=== PATIENT | female | born 1940 | race Caucasian/White ===

== ENCOUNTER → 2016-12-04 | Outpatient (CLI) | payer MEDICARE ==
[~2016-12-04] VITALS: Ht 149.9 cm; Wt 84.4 kg
[~2016-12-04] MED LIST: ALBU17IN INH; ALBUTEROL SULFATE 2.5 MG/0.5 ML INH NEB SOLN As Ordered ONE; ALLE180T33 PO; AMBI10TA PO; AMIT25TA PO; ASPI81TA85 PO; BENZ100C5 PO; BREO1INH INH; ESTR1TAB PO; LEVO-84 PO; LIDOCAINE 2% INJ 100 MG/5 ML SDV (FOR ANES.) As Ordered ONE; MELA10TA PO; METF500T PO; METO-209 PO; MULT1TAB18 PO; NEXI20CA PO; NORC5TAB PO; NS 1,000 ML IV SCH; PRAV40TA2 PO; PROPOFOL 200 MG/20 ML VIAL As Ordered ONE; TRAM50TA2 PO; VALS160T PO
--- NOTE | 2016-12-04 12:31 | ROOR ---
Patient Name: Ronit Mckeon Procedure Date: 12/04/2016 12:19 PM Date of : 1940 Age: 76 Room: [facility] Gender: Female Note Status: Finalized Procedure: Upper GI endoscopy Indications: Heartburn Providers: Avi SOLIS MD Referring MD: DANIA ALCARAZ NP Requesting Provider: Medicines: Monitored Anesthesia Care Complications: No immediate complications. Procedure: Pre-Anesthesia Assessment: - The heart rate, respiratory rate, oxygen saturations, blood pressure, adequacy of pulmonary ventilation, and response to care were monitored throughout the procedure. The Endoscope was introduced through the mouth, and advanced to the second part of duodenum. The upper GI endoscopy was accomplished without difficulty. The patient tolerated the procedure well. Findings: A large hiatal hernia was present. The esophagus was normal. The stomach was normal. The examined duodenum was normal. Impression: - Large hiatal hernia. - Normal esophagus. - Normal stomach. - Normal examined duodenum. - No specimens collected. Recommendation: - Continue present medications. - Follow an antireflux regimen. Avi Solis MD Avi SOLIS MD 12/04/2016 12:31:48 PM This report has been signed electronically. Number of Addenda: 0 Note Initiated On: 12/04/2016 12:19 PM Estimated Blood Loss: Estimated blood loss: none.
--- NOTE | 2016-12-04 12:49 | ROOR ---
Patient Name: Ronit Mckeon Procedure Date: 12/04/2016 12:20 PM Date of : 1940 Age: 76 Room: [facility] Gender: Female Note Status: Finalized Procedure: Colonoscopy Indications: High risk colon cancer surveillance: Personal history of colonic polyps Providers: Avi SOLIS MD Referring MD: DANIA ALCARAZ NP Requesting Provider: Medicines: Monitored Anesthesia Care Complications: No immediate complications. Procedure: Pre-Anesthesia Assessment: - The heart rate, respiratory rate, oxygen saturations, blood pressure, adequacy of pulmonary ventilation, and response to care were monitored throughout the procedure. The Colonoscope was introduced through the anus and advanced to the cecum, identified by appendiceal orifice and ileocecal valve. The colonoscopy was performed without difficulty. The patient tolerated the procedure well. The quality of the bowel preparation was good. Findings: The perianal exam findings include skin tags. Multiple small-mouthed diverticula were found in the sigmoid colon. Two sessile polyps were found in the sigmoid colon and ascending colon. The polyps were 4 to 5 mm in size. These polyps were removed with a cold snare. Resection and retrieval were complete. Internal hemorrhoids were found during retroflexion. The hemorrhoids were medium-sized. Impression: - Perianal skin tags found on perianal exam. - Diverticulosis in the sigmoid colon. - Two 4 to 5 mm polyps in the sigmoid colon and in the ascending colon, removed with a cold snare. Resected and retrieved. - Internal hemorrhoids. Recommendation: - Repeat colonoscopy in 3 years for adenoma surveillance. Avi Solis MD Avi SOLIS MD 12/04/2016 12:48:37 PM This report has been signed electronically. Number of Addenda: 0 Note Initiated On: 12/04/2016 12:20 PM Estimated Blood Loss: Estimated blood loss: none.
[2016-12-04 13:20] VITALS: BP 162/73
== END | disposition home or self-care (01) ==
LOC: M OPP 11:28
PROVIDERS: ATTEND Internal Medicine Gastroenterology
DX: Z12.11 Encounter for screening for malignant neoplasm of colon (principal); D12.2 Benign neoplasm of ascending colon; D12.5 Benign neoplasm of sigmoid colon; Z86.010 Personal history of colon polyps; K57.30 Diverticulosis of large intestine without perforation or abscess without bleeding; K64.4 Residual hemorrhoidal skin tags; R12 Heartburn; I10 Essential (primary) hypertension; E11.9 Type 2 diabetes mellitus without complications; Z80.0 Family history of malignant neoplasm of digestive organs; E78.5 Hyperlipidemia, unspecified; E03.9 Hypothyroidism, unspecified; K58.9 Irritable bowel syndrome, unspecified; M19.90 Unspecified osteoarthritis, unspecified site; G62.9 Polyneuropathy, unspecified; J45.909 Unspecified asthma, uncomplicated; Z79.82 Long term (current) use of aspirin; Z79.84 Long term (current) use of oral hypoglycemic drugs; Z79.51 Long term (current) use of inhaled steroids; Z79.899 Other long term (current) drug therapy

== ENCOUNTER 2017-03-06 09:21 | Emergency (ER) | payer MEDICARE ==
[~2017-03-06] VITALS: Ht 149.9 cm; Wt 85.3 kg
[~2017-03-06 09:21] MED LIST changes: -ALBUTEROL SULFATE 2.5 MG/0.5 ML INH NEB SOLN As Ordered ONE; -LIDOCAINE 2% INJ 100 MG/5 ML SDV (FOR ANES.) As Ordered ONE; +NORC1TAB4 PO; -NORC5TAB PO; -NS 1,000 ML IV SCH; -PROPOFOL 200 MG/20 ML VIAL As Ordered ONE
[2017-03-06] MEDS ORDERED: LEVO75TA4 PO (09:40)
[2017-03-06] MEDS ORDERED: ESOM1CAP5 PO (09:40)
[2017-03-06] MEDS ORDERED: MORPHINE 4 MG/ML 1ML SYRINGE IM ONE (10:30)
[2017-03-06] MEDS ORDERED: LIDOCAINE 2% MDV 20 ML VIAL SC ONE (11:15)
[2017-03-06] MEDS ORDERED: LIDOCAINE 2% MDV 20 ML VIAL As Ordered ONE (11:17)
--- NOTE | 2017-03-06 12:04 | REP ---
Clinical: Trauma. Technique: AP, lateral, bilateral oblique views to the right fourth and fifth digits. Findings: There is an acute posterior dislocation at the fifth proximal interphalangeal joint and small associated fracture cannot be excluded. The fourth digit is intact. Diffuse underlying osteoarthritic changes are noted. Impression: Acute posterior dislocation at the fifth proximal interphalangeal joint. Small associated fracture cannot be excluded. Signed by Evert Llanos MD 03/06/2017 11:07 A
[2017-03-06] MEDS ORDERED: NEOSPORIN OINT 0.9 GM PKT (FLOOR STOCK) As Ordered ONE (12:38)
[2017-03-06] MEDS ORDERED: ALBUTEROL 90 MCG/ACT 8GM HFA INHALER INH ONE (13:00)
[2017-03-06 13:29] VITALS: BP 134/87
--- NOTE | 2017-03-07 07:54 | REP ---
Clinical: Status post reduction. Technique: AP, lateral, bilateral oblique views of the right fifth digit. Findings: Lateral view demonstrates improved alignment with mild residual posterior subluxation at the proximal interphalangeal joint and correlation is recommended. While no definite fracture is appreciated, small fracture fragment cannot be excluded. Underlying osteoarthritic degenerative changes again noted. Impression: Improved alignment with continued mild posterior subluxation based on lateral radiograph. Signed by Evert Llanos MD 03/06/2017 12:56 P
== END 2017-03-06 13:31 | disposition home or self-care (01) ==
LOC: M ED 10:28
DX: S63.286A Dislocation of proximal interphalangeal joint of right little finger, initial encounter (principal); S61.214A Laceration without foreign body of right ring finger without damage to nail, initial encounter; S61.216A Laceration without foreign body of right little finger without damage to nail, initial encounter; W18.09XA Striking against other object with subsequent fall, initial encounter; Y92.019 Unspecified place in single-family (private) house as the place of occurrence of the external cause; Y93.01 Activity, walking, marching and hiking; Y99.8 Other external cause status

== ENCOUNTER → 2021-12-01 | Outpatient (CLI) | payer OTHER ==
[~2021-12-01] MED LIST changes: -AMIT25TA PO; +AMIT25TA17 PO; -ASPI81TA85 PO; +ASPI81TA86 PO; +BENZ-18 PO; -BENZ100C5 PO; +ESOM1CAP5 PO; +LEVO75TA4 PO; -METF500T PO; +METF500T13 PO; -METO-209 PO; +METO1TAB33 PO; -NORC1TAB4 PO; +NORC1TAB7 PO; -VALS160T PO; +VALS160T2 PO
== END ==
LOC: M PAIN 13:00
PROVIDERS: ATTEND Anesthesiology
DX: M48.061 Spinal stenosis, lumbar region without neurogenic claudication (principal); M53.3 Sacrococcygeal disorders, not elsewhere classified; E11.9 Type 2 diabetes mellitus without complications; E03.9 Hypothyroidism, unspecified; J44.9 Chronic obstructive pulmonary disease, unspecified; Z96.651 Presence of right artificial knee joint; E66.01 Morbid (severe) obesity due to excess calories; Z68.45 Body mass index [BMI] 70 or greater, adult; Z79.82 Long term (current) use of aspirin; Z79.899 Other long term (current) drug therapy

== ENCOUNTER → 2022-06-14 | Outpatient (CLI) | payer MEDICARE ==
[~2022-06-14] MED LIST changes: +ISOVUE-300 61% 50ML VIAL As Ordered ONE; +LIDOCAINE 1% MDV 20ML VIAL As Ordered ONE; +TRIAMCINOLONE ACETONIDE SUSP 40 MG/ML VIAL (J3301) As Ordered ONE
== END ==
LOC: M RADPRO 14:07
PROVIDERS: ATTEND Physician Assistant
DX: M16.0 Bilateral primary osteoarthritis of hip (principal)
CPT/HCPCS: 20610; 76000; J3301; Q9967

== ENCOUNTER 2022-09-25 11:16 | Inpatient (IN) | payer MEDICARE ==
[~2022-09-25] VITALS: Ht 147.3 cm; Wt 87.8 kg
[~2022-09-25 11:16] MED LIST changes: -ISOVUE-300 61% 50ML VIAL As Ordered ONE; -LIDOCAINE 1% MDV 20ML VIAL As Ordered ONE; +OMEPRAZOLE 20MG CAP PO SCH; +OSELTAMIVIR PHOSPHATE 30MG CAPSULE PO SCH; -TRIAMCINOLONE ACETONIDE SUSP 40 MG/ML VIAL (J3301) As Ordered ONE
[2022-09-25] MEDS ORDERED: NS 500 ML IV ONE ×3 (11:30→16:50)
[2022-09-25] MEDS ORDERED: ISOVUE-370 76% 100ML VIAL As Ordered ONE (11:43)
[2022-09-25 12:07] LABS: BASO # 0.1 10^3/uL (0.0-0.2); BASO % 0.6 % (0.0-1.0); EOS # 0.1 10^3/uL (0.0-0.5); EOS % 0.5 % (0.0-3.0); HEMATOCRIT 37.2 % (36.0-47.0); HEMOGLOBIN 12.3 g/dl (12.0-15.5); LYMPH # 0.6 10^3/uL (1.5-5.0); LYMPH % 3.7 % (24.0-44.0); MEAN CORPUSCULAR HEMOGLOBIN 32.7 pg (27.0-33.0); MEAN CORPUSCULAR HGB CONC 33.1 g/dl (32.0-36.5); MEAN CORPUSCULAR VOLUME 98.9 fl (80.0-96.0); MONO # 0.9 10^3/uL (0.0-0.8); MONO % 5.6 % (2.0-8.0); NEUTROPHILS # 14.5 10^3/uL (1.5-8.5); NEUTROPHILS % 88.6 % (36.0-66.0); PLATELET COUNT, AUTOMATED 255 10^3/uL (150-450); RED BLOOD COUNT 3.76 10^6/uL (4.00-5.40); WHITE BLOOD COUNT 16.4 10^3/uL (4.0-10.0)
[2022-09-25] MEDS ORDERED: MORPHINE 2 MG/ML 1ML VIAL IV PRN (12:30)
[2022-09-25 12:31] LABS: ETHYL ALCOHOL (ETHANOL) 0.003 % (0.000-0.010)
[2022-09-25 12:33] LABS: ACETAMINOPHEN LEVEL < 2.0 UG/ML (10.0-20.0); ALBUMIN 2.3 G/DL (3.2-5.2); ALKALINE PHOSPHATASE 102 U/L (46-116); ALT/SGPT 131 U/L (7.0-40); AST/SGOT 330 U/L (<34); BILIRUBIN,DIRECT 0.2 MG/DL (<0.4); BILIRUBIN,TOTAL 0.4 MG/DL (0.3-1.2); BLOOD UREA NITROGEN 140 MG/DL (9-23); CALCIUM LEVEL 8.1 MG/DL (8.3-10.6); CARBON DIOXIDE LEVEL 23 MMOL/L (20-31); CHLORIDE LEVEL 96 MMOL/L (98-107); CK-MB VALUE MASS 49.9 NG/ML (<3.6); CREATININE FOR GFR 4.74 MG/DL (0.55-1.30); GLOMERULAR FILTRATION RATE 9.4 (>32); GLUCOSE, FASTING 354 MG/DL (74-106); POTASSIUM SERUM 3.5 MMOL/L (3.5-5.1); SALICYLATE LEVEL < 3.0 MG/DL (<30); SODIUM LEVEL 139 MMOL/L (136-145); TOTAL PROTEIN 6.4 G/DL (5.7-8.2)
[2022-09-25 12:35] LABS: THYROID STIMULATING HORMONE 1.816 uIU/ML (0.55-4.78)
[2022-09-25 12:55] LABS: RSV AMPLIFICATION NEGATIVE (NEGATIVE)
[2022-09-25 12:57] LABS: CPK CREATINE PHOSPHOKINASE 14606 U/L (34-145); MB/CK RELATIVE INDEX 0.34 (< OR =4)
[2022-09-25 13:23] LABS: CK-MB VALUE MASS 51.7 NG/ML (<3.6)
[2022-09-25 13:35] LABS: AMPHETAMINES LEVEL URINE NEGATIVE (NEGATIVE); BARBITURATES URINE NEGATIVE (NEGATIVE); BENZODIAZEPINES URINE NEGATIVE (NEGATIVE); CANNABINOIDS URINE NEGATIVE (NEGATIVE); COCAINE METABOLITE URINE NEGATIVE (NEGATIVE); METHADONE URINE NEGATIVE (NEGATIVE); OPIATES URINE NEGATIVE (NEGATIVE); PHENCYCLIDINE URINE NEGATIVE (NEGATIVE)
[2022-09-25] MEDS ORDERED: BOOSTRIX/ADACEL VACCINE (DIPHTH/PERTUSS/ACELL/TETANUS) 0.5ML SYR IM.IMMUN ONE (13:35)
[2022-09-25 13:43] LABS: MB/CK RELATIVE INDEX 0.36 (< OR =4)
[2022-09-25 14:19] VITALS: BP 104/64
[2022-09-25] MEDS ORDERED: NS 1,000 ML IV ONE (14:50)
[2022-09-25] MEDS ORDERED: GLUCOSE 4GM CHEW TABLET PO PRN (15:30)
[2022-09-25] MEDS ORDERED: GLUCAGON INJ 1MG VIAL SC PRN (15:30)
[2022-09-25] MEDS ORDERED: DEXTROSE 50% 50ML SYRINGE IV PRN (15:30)
[2022-09-25] MEDS ORDERED: GABA800T4 PO (16:06)
[2022-09-25] MEDS ORDERED: SYMB16INH INH (16:06)
[2022-09-25] MEDS ORDERED: LOSA100T45 PO (16:06)
[2022-09-25] MEDS ORDERED: QC F0.52 PO (16:06)
[2022-09-25] MEDS ORDERED: HYDR50TAB PO (16:06)
[2022-09-25] MEDS ORDERED: OMEP-173 PO (16:06)
[2022-09-25] MEDS ORDERED: FLON1SPR NARES (16:06)
[2022-09-25] MEDS ORDERED: MONT10TA97 PO (16:06)
[2022-09-25] MEDS ORDERED: CETI10TA4 PO (16:06)
[2022-09-25] MEDS ORDERED: LEVO88TA24 PO (16:06)
[2022-09-25] MEDS ORDERED: PRED5TA PO (16:06)
[2022-09-25] MEDS ORDERED: RA N1TAB PO (16:06)
[2022-09-25] MEDS ORDERED: VITMTA PO (16:06)
[2022-09-25] MEDS ORDERED: ASPI-161 PO (16:06)
[2022-09-25] MEDS ORDERED: ALBU8.5H INH (16:06)
[2022-09-25] MEDS ORDERED: SEMA1PEN2 PO (16:06)
[2022-09-25] MEDS ORDERED: HYLAND LEG CRAMPS PO (16:06)
[2022-09-25] MEDS ORDERED: OXYB-54 PO (16:06)
[2022-09-25] MEDS ORDERED: COQ1100C5 PO (16:06)
[2022-09-25] MEDS ORDERED: DOCU100C17 PO (16:06)
[2022-09-25] MEDS ORDERED: CHOL50003 PO (16:06)
[2022-09-25] MEDS ORDERED: IBUP1TAB6 PO (16:06)
[2022-09-25] MEDS ORDERED: HOME MED LIST COMPLETE! XX SCH (16:10)
[2022-09-25] MEDS: NS 1,000 ML IV SCH ×2 (16:37→20:58)
[2022-09-25] MEDS ORDERED: METOPROLOL TART 25 MG TABLET PO ONE (16:45)
[2022-09-25 16:54] LABS: MAGNESIUM LEVEL 2.2 MG/DL (1.8-2.4)
[2022-09-25 16:55] LABS: CALCIUM LEVEL 7.1 MG/DL (8.3-10.6); CREATININE FOR GFR 4.2 MG/DL (0.55-1.30); GLOMERULAR FILTRATION RATE 10.8 (>32); PHOSPHORUS LEVEL 5.7 MG/DL (2.4-5.1); POTASSIUM SERUM 3.6 MMOL/L (3.5-5.1)
[2022-09-25] MEDS: OSELTAMIVIR PHOSPHATE 30MG CAPSULE PO SCH (17:09)
[2022-09-25] MEDS: cefTRIAXone SOD 1 GM in D5W MINI-BAG PLUS 50 ML IV SCH (17:11)
[2022-09-25] MEDS: INSULIN LISPRO (NovoLOG) PER UNIT SC SCH ×2 (17:46→20:56)
[2022-09-25] MEDS ORDERED: DOCUSATE SODIUM 100MG CAPSULE PO PRN (19:25)
[2022-09-25] MEDS ORDERED: ALBUTEROL 90 MCG/ACT 8GM HFA INHALER INH PRN (19:25)
[2022-09-25] MEDS ORDERED: FLUTICASONE PROP 0.05% NASAL SPRAY 16 GM (FLONASE) NARES PRN (19:25)
[2022-09-25] MEDS: oxyBUTYnin *DITROPAN XL* 5 MG TABCR PO SCH (20:55)
[2022-09-25] MEDS: OMEPRAZOLE 20MG CAP PO SCH (20:55)
[2022-09-25] MEDS: HEPARIN SOD (PORCINE) 5000UNITS/ML 1ML VIAL/SYRINGE SQ SCH (20:56)
[2022-09-25] MEDS: predniSONE 5 MG TAB PO SCH (20:57)
[2022-09-25 20:58] LABS: BILIRUBIN,DIRECT 0.1 MG/DL (<0.4)
[2022-09-25 21:06] LABS: ALBUMIN 1.9 G/DL (3.2-5.2); BILIRUBIN,TOTAL 0.3 MG/DL (0.3-1.2); TOTAL PROTEIN 5.3 G/DL (5.7-8.2)
[2022-09-25] MEDS: SYMBICORT 160/4.5MCG INHALER 6GM INH SCH (21:18)
[2022-09-25] MEDS: METOPROLOL TART 25 MG TABLET PO SCH (23:59)
[2022-09-26] VITALS (7 sets, daily range): BP systolic 104–122; BP diastolic 53–66
[2022-09-26] MEDS ORDERED: LIDOCAINE 5% (LIDODERM) PATCH TD ONE (04:55)
[2022-09-26] MEDS: HEPARIN SOD (PORCINE) 5000UNITS/ML 1ML VIAL/SYRINGE SQ SCH ×3 (05:23→20:20)
[2022-09-26] MEDS: METOPROLOL TART 25 MG TABLET PO SCH ×2 (05:24→12:00)
[2022-09-26] MEDS: LEVOTHYROXINE 88MCG TABLET (0.088 MG) PO SCH (05:24)
[2022-09-26 06:43] LABS: HEMATOCRIT 31.1 % (36.0-47.0); MEAN CORPUSCULAR HEMOGLOBIN 32.4 pg (27.0-33.0); MEAN CORPUSCULAR HGB CONC 32.2 g/dl (32.0-36.5); MEAN CORPUSCULAR VOLUME 100.6 fl (80.0-96.0); PLATELET COUNT, AUTOMATED 184 10^3/uL (150-450); RED BLOOD COUNT 3.09 10^6/uL (4.00-5.40); WHITE BLOOD COUNT 11.2 10^3/uL (4.0-10.0)
[2022-09-26 07:09] LABS: MAGNESIUM LEVEL 1.9 MG/DL (1.8-2.4)
[2022-09-26 07:10] LABS: BILIRUBIN,DIRECT 0.1 MG/DL (<0.4)
[2022-09-26] MEDS: SYMBICORT 160/4.5MCG INHALER 6GM INH SCH ×2 (07:16→20:29)
[2022-09-26 07:40] LABS: ANISOCYTOSIS 1+; LYMPHOCYTES 9 % (16-44); MONOCYTES 2 % (0-5); NEUTROPHILS 83 % (28-66)
[2022-09-26 07:41] LABS: ALBUMIN 1.5 G/DL (3.2-5.2); BILIRUBIN,TOTAL 0.3 MG/DL (0.3-1.2); CALCIUM LEVEL 6.5 MG/DL (8.3-10.6); CREATININE FOR GFR 3.17 MG/DL (0.55-1.30); GLOMERULAR FILTRATION RATE 14.9 (>32); MICROCYTOSIS 1+; PHOSPHORUS LEVEL 4.8 MG/DL (2.4-5.1); PLATELET ESTIMATE NORMAL (NORMAL); POTASSIUM SERUM 3.6 MMOL/L (3.5-5.1); TOTAL PROTEIN 4.7 G/DL (5.7-8.2)
[2022-09-26] MEDS ORDERED: oxyCODONE 5MG TAB PO ONE (07:45)
[2022-09-26] MEDS: INSULIN LISPRO (NovoLOG) PER UNIT SC SCH ×4 (08:17→20:16)
[2022-09-26] MEDS: ASPIRIN 81MG ENTERIC TABLET PO SCH (08:17)
[2022-09-26] MEDS: MONTELUKAST 10 MG TAB PO SCH (08:18)
[2022-09-26] MEDS: OMEPRAZOLE 20MG CAP PO SCH ×2 (08:18→20:20)
[2022-09-26] MEDS: predniSONE 5 MG TAB PO SCH ×2 (08:18→20:20)
[2022-09-26] MEDS: CETIRIZINE (ZyrTEC) 10 MG TAB PO SCH (08:18)
[2022-09-26] MEDS: oxyBUTYnin *DITROPAN XL* 5 MG TABCR PO SCH ×2 (08:21→20:20)
[2022-09-26] MEDS ORDERED: LIDOCAINE 5% (LIDODERM) PATCH TD SCH ×3 (09:00→21:00)
[2022-09-26] MEDS: NS 1,000 ML IV SCH (10:07)
[2022-09-26] MEDS ORDERED: NS 500 ML IV ONE ×2 (12:55→14:30)
[2022-09-26] MEDS ORDERED: atenoloL 25 MG TAB PO ONE (14:00)
[2022-09-26] MEDS ORDERED: MIDODRINE 5 MG TAB PO ONE (14:35)
[2022-09-26] MEDS: cefTRIAXone SOD 1 GM in D5W MINI-BAG PLUS 50 ML IV SCH (17:31)
[2022-09-27] VITALS (8 sets, daily range): BP systolic 106–120; BP diastolic 53–67
[2022-09-27] MEDS: LEVOTHYROXINE 88MCG TABLET (0.088 MG) PO SCH (05:09)
[2022-09-27] MEDS: HEPARIN SOD (PORCINE) 5000UNITS/ML 1ML VIAL/SYRINGE SQ SCH ×3 (05:09→21:17)
[2022-09-27] MEDS: SYMBICORT 160/4.5MCG INHALER 6GM INH SCH ×2 (07:07→19:46)
[2022-09-27 08:17] LABS: BASO % 0.2 % (0.0-1.0); EOS % 0.1 % (0.0-3.0); HEMATOCRIT 30.6 % (36.0-47.0); HEMOGLOBIN 9.9 g/dl (12.0-15.5); LYMPH # 0.7 10^3/uL (1.5-5.0); LYMPH % 7.6 % (24.0-44.0); MEAN CORPUSCULAR HEMOGLOBIN 32.4 pg (27.0-33.0); MEAN CORPUSCULAR HGB CONC 32.4 g/dl (32.0-36.5); MONO # 0.6 10^3/uL (0.0-0.8); MONO % 5.9 % (2.0-8.0); NEUTROPHILS # 8.1 10^3/uL (1.5-8.5); NEUTROPHILS % 85.5 % (36.0-66.0); PLATELET COUNT, AUTOMATED 187 10^3/uL (150-450); RED BLOOD COUNT 3.06 10^6/uL (4.00-5.40); WHITE BLOOD COUNT 9.5 10^3/uL (4.0-10.0)
[2022-09-27] MEDS: CETIRIZINE (ZyrTEC) 10 MG TAB PO SCH (08:53)
[2022-09-27] MEDS: ASPIRIN 81MG ENTERIC TABLET PO SCH (08:53)
[2022-09-27] MEDS: oxyBUTYnin *DITROPAN XL* 5 MG TABCR PO SCH ×2 (08:53→21:17)
[2022-09-27] MEDS: INSULIN LISPRO (NovoLOG) PER UNIT SC SCH ×4 (08:53→20:56)
[2022-09-27] MEDS: OSELTAMIVIR PHOSPHATE 30MG CAPSULE PO SCH (08:54)
[2022-09-27] MEDS: OMEPRAZOLE 20MG CAP PO SCH ×2 (08:54→21:17)
[2022-09-27] MEDS: MONTELUKAST 10 MG TAB PO SCH (08:54)
[2022-09-27] MEDS: predniSONE 5 MG TAB PO SCH ×2 (08:54→21:17)
[2022-09-27 08:55] LABS: CK-MB VALUE MASS 2.5 NG/ML (<3.6)
[2022-09-27] MEDS: LIDOCAINE 5% (LIDODERM) PATCH TD SCH ×3 (08:55→08:56)
[2022-09-27 09:06] LABS: CALCIUM LEVEL 6.5 MG/DL (8.3-10.6); CREATININE FOR GFR 2.03 MG/DL (0.55-1.30); GLOMERULAR FILTRATION RATE 24.9 (>32); POTASSIUM SERUM 3.4 MMOL/L (3.5-5.1)
[2022-09-27 09:10] LABS: MB/CK RELATIVE INDEX 0.07 (< OR =4)
[2022-09-27] MEDS: METOPROLOL TART 12.5 MG PER 1/2 TAB PO SCH ×2 (12:00→17:47)
[2022-09-27] MEDS ORDERED: POTASSIUM CHLORIDE 10MEQ SR TABLET PO ONE (12:40)
[2022-09-27] MEDS ORDERED: PERCOCET 5MG/325MG TAB PO ONE (12:45)
[2022-09-27] MEDS ORDERED: PERCOCET 5MG/325MG TAB PO PRN (12:45)
[2022-09-27] MEDS: MIDODRINE 5 MG TAB PO SCH (16:22)
[2022-09-27] MEDS: cefTRIAXone SOD 1 GM in D5W MINI-BAG PLUS 50 ML IV SCH (17:27)
[2022-09-27] MEDS ORDERED: INSULIN LISPRO (NovoLOG) PER UNIT SC SCH (17:30)
[2022-09-27] MEDS ORDERED: LOPERAMIDE 2 MG CAPLET PO PRN (18:05)
[2022-09-27 19:26] LABS: MAGNESIUM LEVEL 1.8 MG/DL (1.8-2.4)
[2022-09-27 19:27] LABS: CALCIUM LEVEL 6.7 MG/DL (8.3-10.6); CREATININE FOR GFR 1.83 MG/DL (0.55-1.30); GLOMERULAR FILTRATION RATE 28.1 (>32); POTASSIUM SERUM 3.4 MMOL/L (3.5-5.1)
[2022-09-27] MEDS ORDERED: MAG SULF 1GM/100ML (MAG RUN) 1 GM in IV 1 EA IV ONE (20:25)
[2022-09-27] MEDS ORDERED: LEVEMIR (INSULIN DETEMIR) 1 UNITS/0.01ML SC SCH (21:00)
[2022-09-27] MEDS: POTASSIUM CHLORIDE 10MEQ SR TABLET PO SCH (21:16)
[2022-09-27] MEDS: estradioL 1 MG TAB PO SCH (21:16)
[2022-09-27] MEDS: GABAPENTIN 300 MG CAP PO SCH (21:17)
[2022-09-27] MEDS: PRAVASTATIN 20 MG TAB PO SCH (21:17)
[2022-09-28] MEDS: METOPROLOL TART 12.5 MG PER 1/2 TAB PO SCH ×4 (00:27→18:22)
[2022-09-28 04:00] VITALS: BP 124/58
[2022-09-28 04:59] LABS: BASO % 0.2 % (0.0-1.0); EOS # 0.1 10^3/uL (0.0-0.5); EOS % 0.5 % (0.0-3.0); HEMATOCRIT 31.9 % (36.0-47.0); HEMOGLOBIN 10.3 g/dl (12.0-15.5); LYMPH # 0.7 10^3/uL (1.5-5.0); LYMPH % 6.9 % (24.0-44.0); MEAN CORPUSCULAR HEMOGLOBIN 32.5 pg (27.0-33.0); MEAN CORPUSCULAR HGB CONC 32.3 g/dl (32.0-36.5); MEAN CORPUSCULAR VOLUME 100.6 fl (80.0-96.0); MONO # 0.5 10^3/uL (0.0-0.8); MONO % 4.7 % (2.0-8.0); NEUTROPHILS # 8.2 10^3/uL (1.5-8.5); NEUTROPHILS % 86.2 % (36.0-66.0); PLATELET COUNT, AUTOMATED 247 10^3/uL (150-450); RED BLOOD COUNT 3.17 10^6/uL (4.00-5.40); WHITE BLOOD COUNT 9.5 10^3/uL (4.0-10.0)
[2022-09-28] MEDS: HEPARIN SOD (PORCINE) 5000UNITS/ML 1ML VIAL/SYRINGE SQ SCH ×3 (05:28→22:12)
[2022-09-28] MEDS: LEVOTHYROXINE 88MCG TABLET (0.088 MG) PO SCH (05:28)
[2022-09-28 05:32] LABS: BILIRUBIN,DIRECT < 0.1 MG/DL (<0.4)
[2022-09-28 05:46] LABS: HEPATITIS B SURFACE ANTIGEN NEGATIVE (NEGATIVE)
[2022-09-28] MEDS: PERCOCET 5MG/325MG TAB PO SCH ×3 (06:00→22:14)
[2022-09-28 06:07] LABS: HEPATITIS B CORE ANTIBODY IGM NEGATIVE (NEGATIVE); HEPATITIS C VIRUS ABY INDEX 0.1 INDEX (<0.8)
[2022-09-28 06:10] LABS: ALBUMIN 1.4 G/DL (3.2-5.2); ALKALINE PHOSPHATASE 89 U/L (46-116); ALT/SGPT 119 U/L (7.0-40); AST/SGOT 128 U/L (<34); BILIRUBIN,TOTAL 0.2 MG/DL (0.3-1.2); BLOOD UREA NITROGEN 69 MG/DL (9-23); CALCIUM LEVEL 7.1 MG/DL (8.3-10.6); CARBON DIOXIDE LEVEL 25 MMOL/L (20-31); CHLORIDE LEVEL 113 MMOL/L (98-107); CREATININE FOR GFR 1.72 MG/DL (0.55-1.30); GLOMERULAR FILTRATION RATE 30.1 (>32); GLUCOSE, FASTING 248 MG/DL (74-106); POTASSIUM SERUM 4.4 MMOL/L (3.5-5.1); SODIUM LEVEL 143 MMOL/L (136-145); TOTAL PROTEIN 4.7 G/DL (5.7-8.2)
[2022-09-28 08:00] VITALS: BP 126/66
[2022-09-28 08:22] LABS: MAGNESIUM LEVEL 2.1 MG/DL (1.8-2.4)
[2022-09-28 08:29] LABS: CPK CREATINE PHOSPHOKINASE 2183 U/L (34-145); MB/CK RELATIVE INDEX 0.04 (< OR =4)
[2022-09-28] MEDS: MAGNESIUM OXIDE 400MG TAB (MAG-OX) PO SCH (09:00)
[2022-09-28] MEDS: ASPIRIN 81MG ENTERIC TABLET PO SCH (09:06)
[2022-09-28] MEDS: GABAPENTIN 300 MG CAP PO SCH ×2 (09:06→22:14)
[2022-09-28] MEDS: POTASSIUM CHLORIDE 10MEQ SR TABLET PO SCH (09:06)
[2022-09-28] MEDS: predniSONE 5 MG TAB PO SCH ×2 (09:07→22:14)
[2022-09-28] MEDS: MONTELUKAST 10 MG TAB PO SCH (09:07)
[2022-09-28] MEDS: MIDODRINE 5 MG TAB PO SCH ×3 (09:07→16:19)
[2022-09-28] MEDS: OMEPRAZOLE 20MG CAP PO SCH ×2 (09:07→22:14)
[2022-09-28] MEDS: oxyBUTYnin *DITROPAN XL* 5 MG TABCR PO SCH ×2 (09:07→22:14)
[2022-09-28] MEDS: CETIRIZINE (ZyrTEC) 10 MG TAB PO SCH (09:07)
[2022-09-28] MEDS: LIDOCAINE 5% (LIDODERM) PATCH TD SCH ×3 (09:10→09:12)
[2022-09-28] MEDS: ANALGESIC BALM CRM 3OZ TOP SCH ×4 (09:13→22:15)
[2022-09-28] MEDS: AMOXICILLIN 500 MG CAP PO SCH ×2 (09:14→22:12)
[2022-09-28] MEDS: INSULIN LISPRO (NovoLOG) PER UNIT SC SCH ×3 (09:16→18:22)
[2022-09-28] MEDS ORDERED: NS 1,000 ML IV SCH (11:30)
[2022-09-28] MEDS: SYMBICORT 160/4.5MCG INHALER 6GM INH SCH ×2 (11:41→19:33)
[2022-09-28 12:00] VITALS: BP 127/80
[2022-09-28] MEDS: OSELTAMIVIR PHOSPHATE 30MG CAPSULE PO SCH (14:57)
[2022-09-28 16:00] VITALS: BP 135/60
[2022-09-28 20:00] VITALS: BP 136/62
[2022-09-28] MEDS ORDERED: LEVEMIR (INSULIN DETEMIR) 1 UNITS/0.01ML SC SCH (21:00)
[2022-09-28] MEDS: estradioL 1 MG TAB PO SCH (22:12)
[2022-09-28] MEDS: PRAVASTATIN 20 MG TAB PO SCH (22:12)
[2022-09-29] MEDS: METOPROLOL TART 12.5 MG PER 1/2 TAB PO SCH ×4 (00:38→17:41)
[2022-09-29 05:44] LABS: BASO % 0.2 % (0.0-1.0); EOS # 0.1 10^3/uL (0.0-0.5); EOS % 1.5 % (0.0-3.0); HEMATOCRIT 31.9 % (36.0-47.0); HEMOGLOBIN 10.1 g/dl (12.0-15.5); LYMPH # 0.8 10^3/uL (1.5-5.0); MEAN CORPUSCULAR HEMOGLOBIN 32.8 pg (27.0-33.0); MEAN CORPUSCULAR HGB CONC 31.7 g/dl (32.0-36.5); MEAN CORPUSCULAR VOLUME 103.6 fl (80.0-96.0); MONO # 0.4 10^3/uL (0.0-0.8); MONO % 4.8 % (2.0-8.0); NEUTROPHILS # 6.6 10^3/uL (1.5-8.5); NEUTROPHILS % 81.3 % (36.0-66.0); PLATELET COUNT, AUTOMATED 328 10^3/uL (150-450); RED BLOOD COUNT 3.08 10^6/uL (4.00-5.40); WHITE BLOOD COUNT 8.1 10^3/uL (4.0-10.0)
[2022-09-29] MEDS: LEVOTHYROXINE 88MCG TABLET (0.088 MG) PO SCH (05:57)
[2022-09-29] MEDS: HEPARIN SOD (PORCINE) 5000UNITS/ML 1ML VIAL/SYRINGE SQ SCH ×3 (05:57→20:55)
[2022-09-29] MEDS: PERCOCET 5MG/325MG TAB PO SCH ×3 (05:58→21:48)
[2022-09-29 06:14] LABS: CALCIUM LEVEL 7.6 MG/DL (8.3-10.6); CREATININE FOR GFR 1.46 MG/DL (0.55-1.30); GLOMERULAR FILTRATION RATE 36.4 (>32); POTASSIUM SERUM 6.1 MMOL/L (3.5-5.1)
[2022-09-29] MEDS ORDERED: HumuLIN R (REGULAR) INSULIN (NovoLIN R) **100U/ML** PER UNIT IV STA (06:47)
[2022-09-29] MEDS ORDERED: DEXTROSE 50% 50ML SYRINGE IV STA (06:47)
[2022-09-29] MEDS ORDERED: SODIUM BICARBONATE 8.4% INJ 50ML SYRINGE IV STA (06:47)
[2022-09-29 07:21] VITALS: BP 134/76
[2022-09-29] MEDS: SYMBICORT 160/4.5MCG INHALER 6GM INH SCH ×2 (07:32→21:04)
[2022-09-29] MEDS ORDERED: CALCIUM GLUCONATE 1,000 MG in D5W MINI-BAG PLUS 100 ML IV ONE (08:00)
[2022-09-29] MEDS: MIDODRINE 5 MG TAB PO SCH ×3 (08:00→16:00)
[2022-09-29] MEDS ORDERED: PATIROMER SORBITEX CALCIUM 8.4 GM POWDER PACKET (VELTASSA) PO ONE ×3 (09:00→16:00)
[2022-09-29] MEDS: MAGNESIUM OXIDE 400MG TAB (MAG-OX) PO SCH (09:00)
[2022-09-29] MEDS: INSULIN LISPRO (NovoLOG) PER UNIT SC SCH ×3 (09:02→17:42)
[2022-09-29] MEDS: LEVEMIR (INSULIN DETEMIR) 1 UNITS/0.01ML SC SCH (09:02)
[2022-09-29] MEDS: predniSONE 5 MG TAB PO SCH ×2 (09:05→20:55)
[2022-09-29] MEDS: AMOXICILLIN 500 MG CAP PO SCH ×2 (09:05→20:55)
[2022-09-29] MEDS: OSELTAMIVIR PHOSPHATE 30MG CAPSULE PO SCH (09:05)
[2022-09-29] MEDS: CETIRIZINE (ZyrTEC) 10 MG TAB PO SCH (09:06)
[2022-09-29] MEDS: GABAPENTIN 300 MG CAP PO SCH ×2 (09:06→20:56)
[2022-09-29] MEDS: OMEPRAZOLE 20MG CAP PO SCH ×2 (09:06→20:55)
[2022-09-29] MEDS: ASPIRIN 81MG ENTERIC TABLET PO SCH (09:06)
[2022-09-29] MEDS: oxyBUTYnin *DITROPAN XL* 5 MG TABCR PO SCH ×2 (09:06→20:55)
[2022-09-29] MEDS: MONTELUKAST 10 MG TAB PO SCH (09:06)
[2022-09-29] MEDS: ANALGESIC BALM CRM 3OZ TOP SCH ×4 (09:07→20:56)
[2022-09-29] MEDS: LIDOCAINE 5% (LIDODERM) PATCH TD SCH ×3 (09:07→09:09)
[2022-09-29] MEDS ORDERED: NS 1,000 ML IV SCH (11:25)
[2022-09-29 12:15] VITALS: BP 124/66
[2022-09-29 15:42] VITALS: BP 145/70
[2022-09-29] MEDS ORDERED: SODIUM BICARBONATE 150 MEQ in STERILE WATER LITER BAG 1,000 ML IV SCH (17:00)
[2022-09-29 20:00] VITALS: BP 149/66
[2022-09-29] MEDS: PRAVASTATIN 20 MG TAB PO SCH (20:55)
[2022-09-29] MEDS: estradioL 1 MG TAB PO SCH (20:56)
[2022-09-30] MEDS: METOPROLOL TART 12.5 MG PER 1/2 TAB PO SCH ×4 (00:07→18:00)
[2022-09-30 03:57] VITALS: BP 129/62
[2022-09-30] MEDS: HEPARIN SOD (PORCINE) 5000UNITS/ML 1ML VIAL/SYRINGE SQ SCH ×3 (05:47→21:18)
[2022-09-30] MEDS: LEVOTHYROXINE 88MCG TABLET (0.088 MG) PO SCH (05:48)
[2022-09-30] MEDS: PERCOCET 5MG/325MG TAB PO SCH ×3 (05:48→21:20)
[2022-09-30 06:39] LABS: BASO # 0.1 10^3/uL (0.0-0.2); BASO % 0.6 % (0.0-1.0); EOS # 0.2 10^3/uL (0.0-0.5); EOS % 2.4 % (0.0-3.0); HEMOGLOBIN 9.7 g/dl (12.0-15.5); LYMPH % 12.3 % (24.0-44.0); MEAN CORPUSCULAR HGB CONC 32.3 g/dl (32.0-36.5); MONO # 0.4 10^3/uL (0.0-0.8); MONO % 4.8 % (2.0-8.0); NEUTROPHILS # 6.4 10^3/uL (1.5-8.5); PLATELET COUNT, AUTOMATED 388 10^3/uL (150-450); RED BLOOD COUNT 2.94 10^6/uL (4.00-5.40); WHITE BLOOD COUNT 8.4 10^3/uL (4.0-10.0)
[2022-09-30 07:05] LABS: CALCIUM LEVEL 8.3 MG/DL (8.3-10.6); CREATININE FOR GFR 1.25 MG/DL (0.55-1.30); GLOMERULAR FILTRATION RATE 43.6 (>32); POTASSIUM SERUM 5.2 MMOL/L (3.5-5.1)
[2022-09-30 07:35] VITALS: BP 147/65
[2022-09-30] MEDS ORDERED: LIDOCAINE VISCOUS 2% SOLN 15ML UDC PO ONE (07:40)
[2022-09-30] MEDS ORDERED: SODIUM BICARBONATE 150 MEQ in D5W 1,000 ML IV ONE (07:40)
[2022-09-30] MEDS: MIDODRINE 5 MG TAB PO SCH ×3 (08:00→16:00)
[2022-09-30] MEDS ORDERED: CALCIUM GLUCONATE 1,000 MG in D5W MINI-BAG PLUS 100 ML IV ONE (08:00)
[2022-09-30] MEDS: SYMBICORT 160/4.5MCG INHALER 6GM INH SCH ×2 (08:20→19:26)
[2022-09-30] MEDS: LEVEMIR (INSULIN DETEMIR) 1 UNITS/0.01ML SC SCH (08:29)
[2022-09-30] MEDS: oxyBUTYnin *DITROPAN XL* 5 MG TABCR PO SCH ×2 (08:30→21:19)
[2022-09-30] MEDS: CETIRIZINE (ZyrTEC) 10 MG TAB PO SCH (08:30)
[2022-09-30] MEDS: INSULIN LISPRO (NovoLOG) PER UNIT SC SCH ×3 (08:30→17:11)
[2022-09-30] MEDS: OSELTAMIVIR PHOSPHATE 30MG CAPSULE PO SCH (08:31)
[2022-09-30] MEDS: GABAPENTIN 300 MG CAP PO SCH ×2 (08:31→21:18)
[2022-09-30] MEDS: MONTELUKAST 10 MG TAB PO SCH (08:31)
[2022-09-30] MEDS: predniSONE 5 MG TAB PO SCH ×2 (08:31→21:20)
[2022-09-30] MEDS: LIDOCAINE 5% (LIDODERM) PATCH TD SCH ×3 (08:32→08:33)
[2022-09-30] MEDS: OMEPRAZOLE 20MG CAP PO SCH ×2 (08:32→21:19)
[2022-09-30] MEDS: ASPIRIN 81MG ENTERIC TABLET PO SCH (08:32)
[2022-09-30] MEDS: ANALGESIC BALM CRM 3OZ TOP SCH ×4 (08:34→21:15)
[2022-09-30] MEDS: AMOXICILLIN 500 MG CAP PO SCH ×2 (08:37→21:18)
[2022-09-30] MEDS ORDERED: PATIROMER SORBITEX CALCIUM 8.4 GM POWDER PACKET (VELTASSA) PO ONE (10:00)
[2022-09-30 10:32] LABS: MAGNESIUM LEVEL 1.4 MG/DL (1.8-2.4)
[2022-09-30] MEDS: MAGNESIUM OXIDE 400MG TAB (MAG-OX) PO SCH ×3 (10:46→21:20)
[2022-09-30] MEDS: BENZOCAINE 10% 9GM TUBE (ANBESOL) MT SCH ×4 (10:46→21:21)
[2022-09-30] MEDS: LIDOCAINE VISCOUS 2% SOLN 15ML UDC SS SCH ×6 (10:47→21:00)
[2022-09-30 11:41] VITALS: BP 145/63
[2022-09-30 12:50] LABS: CALCIUM LEVEL 8.9 MG/DL (8.3-10.6); CREATININE FOR GFR 1.22 MG/DL (0.55-1.30); GLOMERULAR FILTRATION RATE 44.8 (>32); POTASSIUM SERUM 4.9 MMOL/L (3.5-5.1)
[2022-09-30 16:00] VITALS: BP 133/70
[2022-09-30 18:20] LABS: CALCIUM LEVEL 9.2 MG/DL (8.3-10.6); CREATININE FOR GFR 1.28 MG/DL (0.55-1.30); GLOMERULAR FILTRATION RATE 42.4 (>32); POTASSIUM SERUM 5.1 MMOL/L (3.5-5.1)
[2022-09-30 20:00] VITALS: BP 143/62
[2022-09-30] MEDS: estradioL 1 MG TAB PO SCH (21:19)
[2022-09-30] MEDS: PRAVASTATIN 20 MG TAB PO SCH (21:19)
[2022-10-01] MEDS: METOPROLOL TART 12.5 MG PER 1/2 TAB PO SCH ×4 (00:29→17:35)
[2022-10-01 04:00] VITALS: BP 122/61
[2022-10-01] MEDS: HEPARIN SOD (PORCINE) 5000UNITS/ML 1ML VIAL/SYRINGE SQ SCH ×3 (05:54→22:07)
[2022-10-01] MEDS: LEVOTHYROXINE 88MCG TABLET (0.088 MG) PO SCH (05:54)
[2022-10-01] MEDS: PERCOCET 5MG/325MG TAB PO SCH ×3 (05:54→22:18)
[2022-10-01 06:04] LABS: BASO % 0.4 % (0.0-1.0); EOS # 0.2 10^3/uL (0.0-0.5); EOS % 1.9 % (0.0-3.0); HEMATOCRIT 30.9 % (36.0-47.0); HEMOGLOBIN 10.2 g/dl (12.0-15.5); LYMPH # 1.5 10^3/uL (1.5-5.0); MEAN CORPUSCULAR HEMOGLOBIN 33.2 pg (27.0-33.0); MEAN CORPUSCULAR VOLUME 100.7 fl (80.0-96.0); MONO # 0.4 10^3/uL (0.0-0.8); MONO % 3.9 % (2.0-8.0); NEUTROPHILS # 7.9 10^3/uL (1.5-8.5); PLATELET COUNT, AUTOMATED 472 10^3/uL (150-450); RED BLOOD COUNT 3.07 10^6/uL (4.00-5.40); WHITE BLOOD COUNT 10.4 10^3/uL (4.0-10.0)
[2022-10-01 06:32] LABS: CALCIUM LEVEL 8.5 MG/DL (8.3-10.6); CREATININE FOR GFR 1.12 MG/DL (0.55-1.30); GLOMERULAR FILTRATION RATE 49.5 (>32); POTASSIUM SERUM 5.2 MMOL/L (3.5-5.1)
[2022-10-01] MEDS: SYMBICORT 160/4.5MCG INHALER 6GM INH SCH ×2 (07:20→20:02)
[2022-10-01 07:36] VITALS: BP 133/60
[2022-10-01] MEDS: MIDODRINE 5 MG TAB PO SCH ×3 (08:00→16:00)
[2022-10-01] MEDS: LIDOCAINE VISCOUS 2% SOLN 15ML UDC SS SCH ×4 (08:06→21:00)
[2022-10-01] MEDS: LEVEMIR (INSULIN DETEMIR) 1 UNITS/0.01ML SC SCH (08:48)
[2022-10-01] MEDS: INSULIN LISPRO (NovoLOG) PER UNIT SC SCH ×3 (08:49→17:34)
[2022-10-01] MEDS: ASPIRIN 81MG ENTERIC TABLET PO SCH ×2 (08:49→22:05)
[2022-10-01] MEDS: AMOXICILLIN 500 MG CAP PO SCH ×2 (08:49→22:05)
[2022-10-01] MEDS: predniSONE 5 MG TAB PO SCH ×2 (08:49→22:05)
[2022-10-01] MEDS: MAGNESIUM OXIDE 400MG TAB (MAG-OX) PO SCH ×3 (08:50→22:06)
[2022-10-01] MEDS: BENZOCAINE 10% 9GM TUBE (ANBESOL) MT SCH ×4 (08:50→22:08)
[2022-10-01] MEDS: ANALGESIC BALM CRM 3OZ TOP SCH ×4 (08:50→22:07)
[2022-10-01] MEDS: CETIRIZINE (ZyrTEC) 10 MG TAB PO SCH (08:51)
[2022-10-01] MEDS: oxyBUTYnin *DITROPAN XL* 5 MG TABCR PO SCH ×2 (08:51→22:06)
[2022-10-01] MEDS: GABAPENTIN 300 MG CAP PO SCH ×2 (08:51→22:06)
[2022-10-01] MEDS: MONTELUKAST 10 MG TAB PO SCH (08:51)
[2022-10-01] MEDS: OMEPRAZOLE 20MG CAP PO SCH ×2 (08:51→22:06)
[2022-10-01] MEDS: LIDOCAINE 5% (LIDODERM) PATCH TD SCH ×3 (08:52→08:53)
[2022-10-01 09:06] LABS: CK-MB VALUE MASS < 1.0 NG/ML (<3.6)
[2022-10-01 09:07] LABS: CPK CREATINE PHOSPHOKINASE 138 U/L (34-145); MB/CK RELATIVE INDEX 0.72 (< OR =4)
[2022-10-01] MEDS ORDERED: FUROSEMIDE 40MG/4ML VIAL IV ONE (09:15)
[2022-10-01] MEDS ORDERED: PATIROMER SORBITEX CALCIUM 8.4 GM POWDER PACKET (VELTASSA) PO ONE ×2 (10:00→20:50)
[2022-10-01 11:44] VITALS: BP 153/70
[2022-10-01 16:00] VITALS: BP 132/60
[2022-10-01] MEDS ORDERED: FLEET ENEMA PR PRN (19:15)
[2022-10-01] MEDS ORDERED: SENOKOT S TAB PO PRN (19:15)
[2022-10-01] MEDS ORDERED: MOM 30ML SUSPENSION UDC PO PRN (19:15)
[2022-10-01 20:00] VITALS: BP 127/60
[2022-10-01] MEDS ORDERED: HumuLIN R (REGULAR) INSULIN (NovoLIN R) **100U/ML** PER UNIT IV STA (20:46)
[2022-10-01] MEDS ORDERED: DEXTROSE 50% 50ML SYRINGE IV STA (20:46)
[2022-10-01] MEDS ORDERED: SODIUM CHLORIDE 0.9% 250ML IV SCH (20:50)
[2022-10-01] MEDS: estradioL 1 MG TAB PO SCH (22:05)
[2022-10-01] MEDS: PRAVASTATIN 20 MG TAB PO SCH (22:05)
[2022-10-02 00:14] VITALS: BP 133/58
[2022-10-02] MEDS: METOPROLOL TART 12.5 MG PER 1/2 TAB PO SCH ×4 (00:25→17:06)
[2022-10-02 04:00] VITALS: BP 139/65
[2022-10-02] MEDS: LEVOTHYROXINE 88MCG TABLET (0.088 MG) PO SCH (05:33)
[2022-10-02] MEDS: PERCOCET 5MG/325MG TAB PO SCH ×3 (05:33→22:01)
[2022-10-02] MEDS: HEPARIN SOD (PORCINE) 5000UNITS/ML 1ML VIAL/SYRINGE SQ SCH ×3 (05:33→21:59)
[2022-10-02 05:46] LABS: BASO % 0.3 % (0.0-1.0); EOS # 0.2 10^3/uL (0.0-0.5); EOS % 1.9 % (0.0-3.0); HEMATOCRIT 31.3 % (36.0-47.0); HEMOGLOBIN 10.1 g/dl (12.0-15.5); LYMPH # 1.4 10^3/uL (1.5-5.0); LYMPH % 12.6 % (24.0-44.0); MEAN CORPUSCULAR HEMOGLOBIN 32.9 pg (27.0-33.0); MEAN CORPUSCULAR HGB CONC 32.3 g/dl (32.0-36.5); MONO # 0.5 10^3/uL (0.0-0.8); MONO % 4.4 % (2.0-8.0); NEUTROPHILS # 8.7 10^3/uL (1.5-8.5); NEUTROPHILS % 76.8 % (36.0-66.0); PLATELET COUNT, AUTOMATED 501 10^3/uL (150-450); RED BLOOD COUNT 3.07 10^6/uL (4.00-5.40); WHITE BLOOD COUNT 11.3 10^3/uL (4.0-10.0)
[2022-10-02 06:14] LABS: CALCIUM LEVEL 8.9 MG/DL (8.3-10.6); CREATININE FOR GFR 1.17 MG/DL (0.55-1.30); POTASSIUM SERUM 4.8 MMOL/L (3.5-5.1)
[2022-10-02 07:58] VITALS: BP 118/61
[2022-10-02] MEDS: oxyBUTYnin *DITROPAN XL* 5 MG TABCR PO SCH ×2 (08:36→22:00)
[2022-10-02] MEDS: MIDODRINE 5 MG TAB PO SCH ×3 (08:36→16:00)
[2022-10-02] MEDS: OMEPRAZOLE 20MG CAP PO SCH ×2 (08:36→22:01)
[2022-10-02] MEDS: GABAPENTIN 300 MG CAP PO SCH ×2 (08:36→22:02)
[2022-10-02] MEDS: predniSONE 5 MG TAB PO SCH ×2 (08:36→22:00)
[2022-10-02] MEDS: LIDOCAINE VISCOUS 2% SOLN 15ML UDC SS SCH ×5 (08:37→22:06)
[2022-10-02] MEDS: MAGNESIUM OXIDE 400MG TAB (MAG-OX) PO SCH ×3 (08:37→22:00)
[2022-10-02] MEDS: MONTELUKAST 10 MG TAB PO SCH (08:37)
[2022-10-02] MEDS: CETIRIZINE (ZyrTEC) 10 MG TAB PO SCH (08:37)
[2022-10-02] MEDS: INSULIN LISPRO (NovoLOG) PER UNIT SC SCH ×3 (08:38→18:20)
[2022-10-02] MEDS: BENZOCAINE 10% 9GM TUBE (ANBESOL) MT SCH ×4 (08:38→21:59)
[2022-10-02] MEDS: LEVEMIR (INSULIN DETEMIR) 1 UNITS/0.01ML SC SCH (08:38)
[2022-10-02] MEDS: LIDOCAINE 5% (LIDODERM) PATCH TD SCH ×3 (08:39→08:40)
[2022-10-02] MEDS: ANALGESIC BALM CRM 3OZ TOP SCH ×4 (08:39→22:02)
[2022-10-02] MEDS: SYMBICORT 160/4.5MCG INHALER 6GM INH SCH ×2 (09:19→20:21)
[2022-10-02] MEDS ORDERED: MAGNESIUM CITRATE 300ML BTL PO ONE ×2 (11:00→13:10)
[2022-10-02 12:00] VITALS: BP 125/63
[2022-10-02] MEDS: AMOXICILLIN 500 MG CAP PO SCH ×2 (14:48→21:59)
[2022-10-02 15:43] VITALS: BP 131/59
[2022-10-02 20:00] VITALS: BP 131/58
[2022-10-02] MEDS: estradioL 1 MG TAB PO SCH (21:59)
[2022-10-02] MEDS: PRAVASTATIN 20 MG TAB PO SCH (22:00)
[2022-10-03 00:56] VITALS: BP 131/85
[2022-10-03] MEDS: METOPROLOL TART 12.5 MG PER 1/2 TAB PO SCH ×4 (01:36→17:18)
[2022-10-03 04:00] VITALS: BP 124/58
[2022-10-03 05:16] LABS: BASO # 0.1 10^3/uL (0.0-0.2); BASO % 0.6 % (0.0-1.0); EOS # 0.3 10^3/uL (0.0-0.5); EOS % 2.2 % (0.0-3.0); HEMOGLOBIN 10.1 g/dl (12.0-15.5); LYMPH % 16.7 % (24.0-44.0); MEAN CORPUSCULAR HEMOGLOBIN 32.5 pg (27.0-33.0); MEAN CORPUSCULAR HGB CONC 31.6 g/dl (32.0-36.5); MEAN CORPUSCULAR VOLUME 102.9 fl (80.0-96.0); MONO # 0.5 10^3/uL (0.0-0.8); MONO % 4.2 % (2.0-8.0); NEUTROPHILS # 8.7 10^3/uL (1.5-8.5); NEUTROPHILS % 73.8 % (36.0-66.0); PLATELET COUNT, AUTOMATED 538 10^3/uL (150-450); RED BLOOD COUNT 3.11 10^6/uL (4.00-5.40); WHITE BLOOD COUNT 11.8 10^3/uL (4.0-10.0)
[2022-10-03 05:38] LABS: CALCIUM LEVEL 8.7 MG/DL (8.3-10.6); CREATININE FOR GFR 1.28 MG/DL (0.55-1.30); GLOMERULAR FILTRATION RATE 42.4 (>32); POTASSIUM SERUM 4.5 MMOL/L (3.5-5.1)
[2022-10-03] MEDS: HEPARIN SOD (PORCINE) 5000UNITS/ML 1ML VIAL/SYRINGE SQ SCH ×3 (06:31→21:38)
[2022-10-03] MEDS: LEVOTHYROXINE 88MCG TABLET (0.088 MG) PO SCH (06:34)
[2022-10-03] MEDS: PERCOCET 5MG/325MG TAB PO SCH ×3 (06:34→21:41)
[2022-10-03 08:00] VITALS: BP 145/60
[2022-10-03] MEDS: MIDODRINE 5 MG TAB PO SCH ×3 (08:00→16:00)
[2022-10-03] MEDS: SYMBICORT 160/4.5MCG INHALER 6GM INH SCH ×2 (08:13→19:48)
[2022-10-03] MEDS: GABAPENTIN 300 MG CAP PO SCH ×2 (08:30→21:39)
[2022-10-03] MEDS: ASPIRIN 81MG ENTERIC TABLET PO SCH (08:30)
[2022-10-03] MEDS: OMEPRAZOLE 20MG CAP PO SCH ×2 (08:30→21:39)
[2022-10-03] MEDS: predniSONE 5 MG TAB PO SCH ×2 (08:30→21:40)
[2022-10-03] MEDS: AMOXICILLIN 500 MG CAP PO SCH (08:30)
[2022-10-03] MEDS: CETIRIZINE (ZyrTEC) 10 MG TAB PO SCH (08:31)
[2022-10-03] MEDS: oxyBUTYnin *DITROPAN XL* 5 MG TABCR PO SCH ×2 (08:31→21:40)
[2022-10-03] MEDS: MONTELUKAST 10 MG TAB PO SCH (08:31)
[2022-10-03] MEDS: MAGNESIUM OXIDE 400MG TAB (MAG-OX) PO SCH ×3 (08:31→21:39)
[2022-10-03] MEDS: LIDOCAINE 5% (LIDODERM) PATCH TD SCH ×3 (08:31→08:32)
[2022-10-03] MEDS: BENZOCAINE 10% 9GM TUBE (ANBESOL) MT SCH ×4 (08:33→21:38)
[2022-10-03] MEDS: ANALGESIC BALM CRM 3OZ TOP SCH ×4 (08:33→21:38)
[2022-10-03] MEDS: LEVEMIR (INSULIN DETEMIR) 1 UNITS/0.01ML SC SCH (08:34)
[2022-10-03] MEDS: INSULIN LISPRO (NovoLOG) PER UNIT SC SCH ×3 (08:34→17:19)
[2022-10-03] MEDS: LIDOCAINE VISCOUS 2% SOLN 15ML UDC SS SCH ×4 (08:34→21:41)
[2022-10-03] MEDS ORDERED: FUROSEMIDE 20MG/2ML VIAL IV ONE (08:45)
[2022-10-03] MEDS: CEPHALEXIN 500 MG CAP PO SCH ×3 (12:47→21:39)
[2022-10-03] MEDS: FUROSEMIDE 40MG/4ML VIAL IV SCH ×2 (12:54→17:20)
[2022-10-03] MEDS: NYSTATIN 100,000 UNITS/GM TOPICAL PWD 15GM TOP SCH ×2 (13:14→21:37)
[2022-10-03 14:00] VITALS: BP 133/60
[2022-10-03 16:00] VITALS: BP 133/60
[2022-10-03 20:00] VITALS: BP 129/73
[2022-10-03] MEDS: estradioL 1 MG TAB PO SCH (21:39)
[2022-10-03] MEDS: SENOKOT S TAB PO SCH (21:40)
[2022-10-03] MEDS: PRAVASTATIN 20 MG TAB PO SCH (21:40)
[2022-10-03] MEDS: MIRALAX *UNIT DOSE* 17GM PACKET PO SCH (21:41)
[2022-10-04] VITALS (8 sets, daily range): BP systolic 116–158; BP diastolic 58–69
[2022-10-04] MEDS: METOPROLOL TART 12.5 MG PER 1/2 TAB PO SCH ×4 (00:30→17:49)
[2022-10-04 05:08] LABS: BASO # 0.1 10^3/uL (0.0-0.2); BASO % 0.4 % (0.0-1.0); EOS # 0.1 10^3/uL (0.0-0.5); EOS % 0.4 % (0.0-3.0); HEMATOCRIT 31.7 % (36.0-47.0); HEMOGLOBIN 10.1 g/dl (12.0-15.5); LYMPH # 1.5 10^3/uL (1.5-5.0); LYMPH % 12.1 % (24.0-44.0); MEAN CORPUSCULAR HEMOGLOBIN 32.9 pg (27.0-33.0); MEAN CORPUSCULAR HGB CONC 31.9 g/dl (32.0-36.5); MEAN CORPUSCULAR VOLUME 103.3 fl (80.0-96.0); MONO # 0.4 10^3/uL (0.0-0.8); MONO % 3.1 % (2.0-8.0); NEUTROPHILS % 82.4 % (36.0-66.0); PLATELET COUNT, AUTOMATED 509 10^3/uL (150-450); RED BLOOD COUNT 3.07 10^6/uL (4.00-5.40); WHITE BLOOD COUNT 12.2 10^3/uL (4.0-10.0)
[2022-10-04 05:42] LABS: CALCIUM LEVEL 9.1 MG/DL (8.3-10.6); CREATININE FOR GFR 1.48 MG/DL (0.55-1.30); GLOMERULAR FILTRATION RATE 35.9 (>32); POTASSIUM SERUM 5.8 MMOL/L (3.5-5.1)
[2022-10-04] MEDS: LEVOTHYROXINE 88MCG TABLET (0.088 MG) PO SCH (05:49)
[2022-10-04] MEDS: HEPARIN SOD (PORCINE) 5000UNITS/ML 1ML VIAL/SYRINGE SQ SCH ×3 (05:49→21:02)
[2022-10-04] MEDS: PERCOCET 5MG/325MG TAB PO SCH ×2 (05:50→14:04)
[2022-10-04] MEDS: SYMBICORT 160/4.5MCG INHALER 6GM INH SCH ×2 (07:07→20:00)
[2022-10-04] MEDS: MIDODRINE 5 MG TAB PO SCH ×3 (08:00→16:26)
[2022-10-04 08:41] LABS: MAGNESIUM LEVEL 1.8 MG/DL (1.8-2.4)
[2022-10-04] MEDS ORDERED: CEPACOL LOZENGE PO PRN (08:55)
[2022-10-04] MEDS ORDERED: SENOKOT S TAB PO SCH (09:00)
[2022-10-04] MEDS: LIDOCAINE VISCOUS 2% SOLN 15ML UDC SS SCH ×4 (09:00→21:01)
[2022-10-04] MEDS ORDERED: MIRALAX *UNIT DOSE* 17GM PACKET PO SCH (09:00)
[2022-10-04] MEDS: LIDOCAINE 5% (LIDODERM) PATCH TD SCH ×3 (10:11→10:12)
[2022-10-04] MEDS: ANALGESIC BALM CRM 3OZ TOP SCH ×4 (10:12→21:02)
[2022-10-04] MEDS: NYSTATIN 100,000 UNITS/GM TOPICAL PWD 15GM TOP SCH ×2 (10:13→21:02)
[2022-10-04] MEDS: MIRALAX *UNIT DOSE* 17GM PACKET PO SCH ×2 (10:14→21:01)
[2022-10-04] MEDS: LEVEMIR (INSULIN DETEMIR) 1 UNITS/0.01ML SC SCH (10:15)
[2022-10-04] MEDS: INSULIN LISPRO (NovoLOG) PER UNIT SC SCH ×3 (10:15→17:45)
[2022-10-04] MEDS: GABAPENTIN 300 MG CAP PO SCH ×2 (10:16→21:03)
[2022-10-04] MEDS: CETIRIZINE (ZyrTEC) 10 MG TAB PO SCH (10:16)
[2022-10-04] MEDS: SENOKOT S TAB PO SCH ×2 (10:16→21:04)
[2022-10-04] MEDS: CEPHALEXIN 500 MG CAP PO SCH ×4 (10:17→21:03)
[2022-10-04] MEDS: oxyBUTYnin *DITROPAN XL* 5 MG TABCR PO SCH ×2 (10:17→21:03)
[2022-10-04] MEDS: ASPIRIN 81MG ENTERIC TABLET PO SCH (10:17)
[2022-10-04] MEDS: OMEPRAZOLE 20MG CAP PO SCH ×2 (10:18→21:04)
[2022-10-04] MEDS: MONTELUKAST 10 MG TAB PO SCH (10:18)
[2022-10-04] MEDS: MAGNESIUM OXIDE 400MG TAB (MAG-OX) PO SCH ×3 (10:19→21:04)
[2022-10-04] MEDS: BENZOCAINE 10% 9GM TUBE (ANBESOL) MT SCH ×4 (10:20→21:04)
[2022-10-04] MEDS: FUROSEMIDE 40MG/4ML VIAL IV SCH ×2 (10:22→16:26)
[2022-10-04] MEDS: predniSONE 5 MG TAB PO SCH ×2 (10:28→21:03)
[2022-10-04] MEDS: traMADol 50 MG TAB PO PRN (10:40)
[2022-10-04] MEDS: estradioL 1 MG TAB PO SCH (21:04)
[2022-10-04] MEDS: PRAVASTATIN 20 MG TAB PO SCH (21:04)
[2022-10-05] MEDS: PERCOCET 5MG/325MG TAB PO SCH ×4 (00:20→21:52)
[2022-10-05] MEDS: METOPROLOL TART 12.5 MG PER 1/2 TAB PO SCH ×4 (00:21→17:46)
[2022-10-05] MEDS: HEPARIN SOD (PORCINE) 5000UNITS/ML 1ML VIAL/SYRINGE SQ SCH ×3 (05:53→21:53)
[2022-10-05] MEDS: LEVOTHYROXINE 88MCG TABLET (0.088 MG) PO SCH (05:54)
[2022-10-05 05:55] VITALS: BP 120/63
[2022-10-05 06:17] LABS: HEMATOCRIT 30.5 % (36.0-47.0); HEMOGLOBIN 9.6 g/dl (12.0-15.5); MEAN CORPUSCULAR HEMOGLOBIN 32.5 pg (27.0-33.0); MEAN CORPUSCULAR HGB CONC 31.5 g/dl (32.0-36.5); MEAN CORPUSCULAR VOLUME 103.4 fl (80.0-96.0); PLATELET COUNT, AUTOMATED 534 10^3/uL (150-450); RED BLOOD COUNT 2.95 10^6/uL (4.00-5.40); WHITE BLOOD COUNT 11.8 10^3/uL (4.0-10.0)
[2022-10-05 06:36] LABS: CALCIUM LEVEL 8.8 MG/DL (8.3-10.6); CREATININE FOR GFR 1.32 MG/DL (0.55-1.30); GLOMERULAR FILTRATION RATE 40.9 (>32); POTASSIUM SERUM 5.7 MMOL/L (3.5-5.1)
[2022-10-05] MEDS: SYMBICORT 160/4.5MCG INHALER 6GM INH SCH ×2 (08:21→18:21)
[2022-10-05] MEDS: FUROSEMIDE 40MG/4ML VIAL IV SCH ×2 (08:31→16:26)
[2022-10-05] MEDS: LIDOCAINE 5% (LIDODERM) PATCH TD SCH ×3 (08:32)
[2022-10-05] MEDS: oxyBUTYnin *DITROPAN XL* 5 MG TABCR PO SCH ×2 (08:32→21:52)
[2022-10-05] MEDS: CEPHALEXIN 500 MG CAP PO SCH ×4 (08:33→21:51)
[2022-10-05] MEDS: GABAPENTIN 300 MG CAP PO SCH ×2 (08:33→21:51)
[2022-10-05] MEDS: MAGNESIUM OXIDE 400MG TAB (MAG-OX) PO SCH ×3 (08:33→21:52)
[2022-10-05] MEDS: MIDODRINE 5 MG TAB PO SCH ×3 (08:33→16:26)
[2022-10-05] MEDS: ASPIRIN 81MG ENTERIC TABLET PO SCH (08:33)
[2022-10-05] MEDS: MONTELUKAST 10 MG TAB PO SCH (08:33)
[2022-10-05] MEDS: INSULIN LISPRO (NovoLOG) PER UNIT SC SCH ×3 (08:37→17:43)
[2022-10-05] MEDS: LEVEMIR (INSULIN DETEMIR) 1 UNITS/0.01ML SC SCH (08:37)
[2022-10-05] MEDS: CETIRIZINE (ZyrTEC) 10 MG TAB PO SCH (08:38)
[2022-10-05] MEDS: NYSTATIN 100,000 UNITS/GM TOPICAL PWD 15GM TOP SCH ×2 (08:38→21:53)
[2022-10-05] MEDS: OMEPRAZOLE 20MG CAP PO SCH ×2 (08:38→21:51)
[2022-10-05] MEDS: MIRALAX *UNIT DOSE* 17GM PACKET PO SCH ×3 (08:39→21:51)
[2022-10-05] MEDS: LIDOCAINE VISCOUS 2% SOLN 15ML UDC SS SCH ×4 (08:39→21:00)
[2022-10-05] MEDS: SENOKOT S TAB PO SCH ×2 (08:39→21:51)
[2022-10-05] MEDS: BENZOCAINE 10% 9GM TUBE (ANBESOL) MT SCH ×4 (08:42→21:00)
[2022-10-05] MEDS: ANALGESIC BALM CRM 3OZ TOP SCH ×4 (08:43→21:00)
[2022-10-05] MEDS: predniSONE 5 MG TAB PO SCH (10:26)
[2022-10-05 14:00] VITALS: BP 133/59
[2022-10-05 20:07] VITALS: BP 101/56
[2022-10-05] MEDS: PRAVASTATIN 20 MG TAB PO SCH (21:51)
[2022-10-05] MEDS: estradioL 1 MG TAB PO SCH (21:52)
[2022-10-06] MEDS: METOPROLOL TART 12.5 MG PER 1/2 TAB PO SCH ×4 (00:49→17:32)
[2022-10-06 05:11] VITALS: BP 122/75
[2022-10-06 05:52] LABS: HEMATOCRIT 31.3 % (36.0-47.0); MEAN CORPUSCULAR HEMOGLOBIN 32.7 pg (27.0-33.0); MEAN CORPUSCULAR HGB CONC 31.9 g/dl (32.0-36.5); MEAN CORPUSCULAR VOLUME 102.3 fl (80.0-96.0); PLATELET COUNT, AUTOMATED 544 10^3/uL (150-450); RED BLOOD COUNT 3.06 10^6/uL (4.00-5.40); WHITE BLOOD COUNT 11.1 10^3/uL (4.0-10.0)
[2022-10-06] MEDS: LEVOTHYROXINE 88MCG TABLET (0.088 MG) PO SCH (06:00)
[2022-10-06] MEDS: PERCOCET 5MG/325MG TAB PO SCH ×3 (06:00→22:10)
[2022-10-06] MEDS: HEPARIN SOD (PORCINE) 5000UNITS/ML 1ML VIAL/SYRINGE SQ SCH ×3 (06:01→20:33)
[2022-10-06 06:11] LABS: CALCIUM LEVEL 8.6 MG/DL (8.3-10.6); CREATININE FOR GFR 1.38 MG/DL (0.55-1.30); GLOMERULAR FILTRATION RATE 38.9 (>32); POTASSIUM SERUM 4.6 MMOL/L (3.5-5.1)
[2022-10-06] MEDS: FUROSEMIDE 40MG/4ML VIAL IV SCH (08:41)
[2022-10-06] MEDS: LIDOCAINE VISCOUS 2% SOLN 15ML UDC SS SCH ×3 (08:41→12:40)
[2022-10-06] MEDS: LEVEMIR (INSULIN DETEMIR) 1 UNITS/0.01ML SC SCH (08:41)
[2022-10-06] MEDS: MIRALAX *UNIT DOSE* 17GM PACKET PO SCH ×2 (08:41→20:33)
[2022-10-06] MEDS: CETIRIZINE (ZyrTEC) 10 MG TAB PO SCH (08:42)
[2022-10-06] MEDS: INSULIN LISPRO (NovoLOG) PER UNIT SC SCH ×3 (08:42→17:31)
[2022-10-06] MEDS: CEPHALEXIN 500 MG CAP PO SCH ×4 (08:42→20:32)
[2022-10-06] MEDS: GABAPENTIN 300 MG CAP PO SCH ×2 (08:42→20:31)
[2022-10-06] MEDS: OMEPRAZOLE 20MG CAP PO SCH ×2 (08:42→20:32)
[2022-10-06] MEDS: MAGNESIUM OXIDE 400MG TAB (MAG-OX) PO SCH ×3 (08:42→20:31)
[2022-10-06] MEDS: oxyBUTYnin *DITROPAN XL* 5 MG TABCR PO SCH ×2 (08:43→20:31)
[2022-10-06] MEDS: ASPIRIN 81MG ENTERIC TABLET PO SCH (08:43)
[2022-10-06] MEDS: predniSONE 5 MG TAB PO SCH (08:43)
[2022-10-06] MEDS: SENOKOT S TAB PO SCH ×2 (08:43→20:32)
[2022-10-06] MEDS: MONTELUKAST 10 MG TAB PO SCH (08:43)
[2022-10-06] MEDS: MIDODRINE 5 MG TAB PO SCH ×3 (08:43→17:32)
[2022-10-06] MEDS: ANALGESIC BALM CRM 3OZ TOP SCH ×2 (08:44→12:40)
[2022-10-06] MEDS: LIDOCAINE 5% (LIDODERM) PATCH TD SCH ×3 (08:44→08:45)
[2022-10-06] MEDS: NYSTATIN 100,000 UNITS/GM TOPICAL PWD 15GM TOP SCH ×2 (08:45→20:33)
[2022-10-06] MEDS: BENZOCAINE 10% 9GM TUBE (ANBESOL) MT SCH ×2 (08:46→12:38)
[2022-10-06] MEDS: SYMBICORT 160/4.5MCG INHALER 6GM INH SCH ×2 (09:05→20:40)
[2022-10-06 14:00] VITALS: BP 111/52
[2022-10-06] MEDS ORDERED: BENZOCAINE 10% 9GM TUBE (ANBESOL) MT PRN (17:20)
[2022-10-06] MEDS ORDERED: ANALGESIC BALM CRM 3OZ TOP PRN (17:20)
[2022-10-06] MEDS: FUROSEMIDE 40 MG TAB PO SCH (17:32)
[2022-10-06] MEDS: PRAVASTATIN 20 MG TAB PO SCH (20:32)
[2022-10-06] MEDS: estradioL 1 MG TAB PO SCH (20:33)
[2022-10-06 22:00] VITALS: BP 131/87
[2022-10-07 00:11] VITALS: BP 130/62
[2022-10-07] MEDS: METOPROLOL TART 12.5 MG PER 1/2 TAB PO SCH ×4 (00:18→17:07)
[2022-10-07] MEDS: LEVOTHYROXINE 88MCG TABLET (0.088 MG) PO SCH (05:37)
[2022-10-07] MEDS: HEPARIN SOD (PORCINE) 5000UNITS/ML 1ML VIAL/SYRINGE SQ SCH ×3 (05:37→20:10)
[2022-10-07 06:00] VITALS: BP 152/91
[2022-10-07] MEDS: PERCOCET 5MG/325MG TAB PO SCH ×2 (06:00→13:33)
[2022-10-07 06:23] LABS: HEMATOCRIT 32.8 % (36.0-47.0); HEMOGLOBIN 10.4 g/dl (12.0-15.5); MEAN CORPUSCULAR HEMOGLOBIN 32.5 pg (27.0-33.0); MEAN CORPUSCULAR HGB CONC 31.7 g/dl (32.0-36.5); MEAN CORPUSCULAR VOLUME 102.5 fl (80.0-96.0); PLATELET COUNT, AUTOMATED 513 10^3/uL (150-450); WHITE BLOOD COUNT 11.7 10^3/uL (4.0-10.0)
[2022-10-07 06:44] LABS: CALCIUM LEVEL 8.9 MG/DL (8.3-10.6); CREATININE FOR GFR 1.38 MG/DL (0.55-1.30); GLOMERULAR FILTRATION RATE 38.9 (>32); POTASSIUM SERUM 4.3 MMOL/L (3.5-5.1)
[2022-10-07] MEDS: SYMBICORT 160/4.5MCG INHALER 6GM INH SCH ×2 (08:00→20:14)
[2022-10-07] MEDS: MIDODRINE 5 MG TAB PO SCH ×3 (08:29→17:07)
[2022-10-07] MEDS: ASPIRIN 81MG ENTERIC TABLET PO SCH (08:29)
[2022-10-07] MEDS: OMEPRAZOLE 20MG CAP PO SCH ×2 (08:29→20:10)
[2022-10-07] MEDS: oxyBUTYnin *DITROPAN XL* 5 MG TABCR PO SCH ×2 (08:29→20:10)
[2022-10-07] MEDS: CEPHALEXIN 500 MG CAP PO SCH ×4 (08:29→20:10)
[2022-10-07] MEDS: FUROSEMIDE 40 MG TAB PO SCH ×2 (08:29→17:08)
[2022-10-07] MEDS: CETIRIZINE (ZyrTEC) 10 MG TAB PO SCH (08:29)
[2022-10-07] MEDS: GABAPENTIN 300 MG CAP PO SCH ×2 (08:29→20:10)
[2022-10-07] MEDS: MAGNESIUM OXIDE 400MG TAB (MAG-OX) PO SCH ×3 (08:30→20:10)
[2022-10-07] MEDS: LIDOCAINE 5% (LIDODERM) PATCH TD SCH ×3 (08:30→08:31)
[2022-10-07] MEDS: SENOKOT S TAB PO SCH ×2 (08:30→20:10)
[2022-10-07] MEDS: MONTELUKAST 10 MG TAB PO SCH (08:30)
[2022-10-07] MEDS: MIRALAX *UNIT DOSE* 17GM PACKET PO SCH ×2 (08:30→20:11)
[2022-10-07] MEDS: predniSONE 5 MG TAB PO SCH (08:30)
[2022-10-07] MEDS: INSULIN LISPRO (NovoLOG) PER UNIT SC SCH ×3 (08:35→17:07)
[2022-10-07] MEDS: LEVEMIR (INSULIN DETEMIR) 1 UNITS/0.01ML SC SCH (08:36)
[2022-10-07] MEDS: NYSTATIN 100,000 UNITS/GM TOPICAL PWD 15GM TOP SCH ×2 (08:36→20:11)
[2022-10-07] MEDS: traMADol 50 MG TAB PO PRN (08:45)
[2022-10-07 14:00] VITALS: BP 126/78
[2022-10-07 16:42] VITALS: BP 120/64
[2022-10-07] MEDS: estradioL 1 MG TAB PO SCH (20:09)
[2022-10-07] MEDS: PRAVASTATIN 20 MG TAB PO SCH (20:10)
[2022-10-08 00:16] VITALS: BP 120/65
[2022-10-08] MEDS: METOPROLOL TART 12.5 MG PER 1/2 TAB PO SCH ×4 (00:19→17:07)
[2022-10-08] MEDS: PERCOCET 5MG/325MG TAB PO SCH ×3 (01:48→14:00)
[2022-10-08] MEDS: traMADol 50 MG TAB PO PRN (03:46)
[2022-10-08 05:41] VITALS: BP 115/69
[2022-10-08] MEDS: HEPARIN SOD (PORCINE) 5000UNITS/ML 1ML VIAL/SYRINGE SQ SCH ×3 (05:49→20:43)
[2022-10-08] MEDS: LEVOTHYROXINE 88MCG TABLET (0.088 MG) PO SCH (05:49)
[2022-10-08 07:30] LABS: HEMATOCRIT 32.1 % (36.0-47.0); HEMOGLOBIN 10.1 g/dl (12.0-15.5); MEAN CORPUSCULAR HEMOGLOBIN 32.7 pg (27.0-33.0); MEAN CORPUSCULAR HGB CONC 31.5 g/dl (32.0-36.5); MEAN CORPUSCULAR VOLUME 103.9 fl (80.0-96.0); PLATELET COUNT, AUTOMATED 469 10^3/uL (150-450); RED BLOOD COUNT 3.09 10^6/uL (4.00-5.40); WHITE BLOOD COUNT 10.8 10^3/uL (4.0-10.0)
[2022-10-08 08:00] LABS: CALCIUM LEVEL 8.7 MG/DL (8.3-10.6); CREATININE FOR GFR 1.56 MG/DL (0.55-1.30); GLOMERULAR FILTRATION RATE 33.7 (>32); POTASSIUM SERUM 3.9 MMOL/L (3.5-5.1)
[2022-10-08] MEDS: FUROSEMIDE 40 MG TAB PO SCH (08:49)
[2022-10-08] MEDS: CETIRIZINE (ZyrTEC) 10 MG TAB PO SCH (08:49)
[2022-10-08] MEDS: CEPHALEXIN 500 MG CAP PO SCH ×4 (08:49→20:41)
[2022-10-08] MEDS: ASPIRIN 81MG ENTERIC TABLET PO SCH (08:49)
[2022-10-08] MEDS: oxyBUTYnin *DITROPAN XL* 5 MG TABCR PO SCH ×2 (08:49→20:41)
[2022-10-08] MEDS: SENOKOT S TAB PO SCH ×2 (08:49→20:43)
[2022-10-08] MEDS: predniSONE 5 MG TAB PO SCH (08:49)
[2022-10-08] MEDS: OMEPRAZOLE 20MG CAP PO SCH ×2 (08:49→20:41)
[2022-10-08] MEDS: GABAPENTIN 300 MG CAP PO SCH ×2 (08:49→20:41)
[2022-10-08] MEDS: MONTELUKAST 10 MG TAB PO SCH (08:49)
[2022-10-08] MEDS: MIDODRINE 5 MG TAB PO SCH ×3 (08:49→16:17)
[2022-10-08] MEDS: LEVEMIR (INSULIN DETEMIR) 1 UNITS/0.01ML SC SCH (08:50)
[2022-10-08] MEDS: MIRALAX *UNIT DOSE* 17GM PACKET PO SCH ×2 (08:50→20:42)
[2022-10-08] MEDS: INSULIN LISPRO (NovoLOG) PER UNIT SC SCH ×3 (08:50→17:12)
[2022-10-08] MEDS: MAGNESIUM OXIDE 400MG TAB (MAG-OX) PO SCH ×3 (08:50→20:42)
[2022-10-08] MEDS: LIDOCAINE 5% (LIDODERM) PATCH TD SCH ×3 (08:51)
[2022-10-08] MEDS: NYSTATIN 100,000 UNITS/GM TOPICAL PWD 15GM TOP SCH ×2 (08:52→20:43)
[2022-10-08] MEDS: SYMBICORT 160/4.5MCG INHALER 6GM INH SCH ×2 (11:43→18:32)
[2022-10-08] MEDS ORDERED: FUROSEMIDE 40 MG TAB PO ONE (12:20)
[2022-10-08 14:00] VITALS: BP 110/68
[2022-10-08] MEDS: FUROSEMIDE 80 MG TAB PO SCH (17:11)
[2022-10-08 20:00] VITALS: BP 127/68
[2022-10-08] MEDS: estradioL 1 MG TAB PO SCH (20:41)
[2022-10-08] MEDS: PRAVASTATIN 20 MG TAB PO SCH (20:41)
[2022-10-09 00:03] VITALS: BP 125/66
[2022-10-09] MEDS: METOPROLOL TART 12.5 MG PER 1/2 TAB PO SCH ×4 (00:20→17:16)
[2022-10-09] MEDS: PERCOCET 5MG/325MG TAB PO SCH ×4 (00:21→21:08)
[2022-10-09 05:37] VITALS: BP 130/49
[2022-10-09] MEDS: HEPARIN SOD (PORCINE) 5000UNITS/ML 1ML VIAL/SYRINGE SQ SCH ×3 (05:44→21:06)
[2022-10-09] MEDS: LEVOTHYROXINE 88MCG TABLET (0.088 MG) PO SCH (05:45)
[2022-10-09 06:44] LABS: HEMATOCRIT 30.6 % (36.0-47.0); HEMOGLOBIN 9.8 g/dl (12.0-15.5); MEAN CORPUSCULAR HEMOGLOBIN 32.8 pg (27.0-33.0); MEAN CORPUSCULAR VOLUME 102.3 fl (80.0-96.0); PLATELET COUNT, AUTOMATED 404 10^3/uL (150-450); RED BLOOD COUNT 2.99 10^6/uL (4.00-5.40); WHITE BLOOD COUNT 10.1 10^3/uL (4.0-10.0)
[2022-10-09 07:18] LABS: CALCIUM LEVEL 8.4 MG/DL (8.3-10.6); CREATININE FOR GFR 1.5 MG/DL (0.55-1.30); GLOMERULAR FILTRATION RATE 35.3 (>32); POTASSIUM SERUM 3.2 MMOL/L (3.5-5.1)
[2022-10-09] MEDS: SENOKOT S TAB PO SCH ×2 (07:33→19:45)
[2022-10-09] MEDS: MIRALAX *UNIT DOSE* 17GM PACKET PO SCH ×2 (07:33→19:45)
[2022-10-09] MEDS: LIDOCAINE 5% (LIDODERM) PATCH TD SCH ×3 (08:43→08:44)
[2022-10-09] MEDS: GABAPENTIN 300 MG CAP PO SCH ×2 (08:45→21:05)
[2022-10-09] MEDS: FUROSEMIDE 80 MG TAB PO SCH ×2 (08:45→17:14)
[2022-10-09] MEDS: INSULIN LISPRO (NovoLOG) PER UNIT SC SCH ×3 (08:45→17:14)
[2022-10-09] MEDS: predniSONE 5 MG TAB PO SCH (08:45)
[2022-10-09] MEDS: ASPIRIN 81MG ENTERIC TABLET PO SCH (08:45)
[2022-10-09] MEDS: LEVEMIR (INSULIN DETEMIR) 1 UNITS/0.01ML SC SCH (08:45)
[2022-10-09] MEDS: MONTELUKAST 10 MG TAB PO SCH (08:46)
[2022-10-09] MEDS: MAGNESIUM OXIDE 400MG TAB (MAG-OX) PO SCH (08:46)
[2022-10-09] MEDS: oxyBUTYnin *DITROPAN XL* 5 MG TABCR PO SCH ×2 (08:46→21:05)
[2022-10-09] MEDS: OMEPRAZOLE 20MG CAP PO SCH ×2 (08:46→21:05)
[2022-10-09] MEDS: MIDODRINE 5 MG TAB PO SCH ×3 (08:46→17:15)
[2022-10-09] MEDS: CETIRIZINE (ZyrTEC) 10 MG TAB PO SCH (08:46)
[2022-10-09] MEDS: CEPHALEXIN 500 MG CAP PO SCH ×4 (08:46→21:05)
[2022-10-09] MEDS: NYSTATIN 100,000 UNITS/GM TOPICAL PWD 15GM TOP SCH ×2 (08:47→21:08)
[2022-10-09] MEDS: SYMBICORT 160/4.5MCG INHALER 6GM INH SCH ×2 (10:38→20:24)
[2022-10-09] MEDS: POTASSIUM CHLORIDE 10MEQ SR TABLET PO SCH ×2 (13:09→21:05)
[2022-10-09 14:00] VITALS: BP 120/64
[2022-10-09] MEDS ORDERED: CEPH500C PO (17:30)
[2022-10-09] MEDS ORDERED: POTA-136 PO (17:30)
[2022-10-09] MEDS ORDERED: NYST10006 TOP (17:30)
[2022-10-09] MEDS ORDERED: METO1TAB87 PO (17:30)
[2022-10-09] MEDS ORDERED: PERCOCET PO (17:30)
[2022-10-09] MEDS ORDERED: LIDO5TD TD (17:30)
[2022-10-09 20:00] VITALS: BP 129/79
[2022-10-09] MEDS: PRAVASTATIN 20 MG TAB PO SCH (21:05)
[2022-10-09] MEDS: estradioL 1 MG TAB PO SCH (21:05)
[2022-10-10] MEDS: METOPROLOL TART 12.5 MG PER 1/2 TAB PO SCH ×3 (00:20→12:00)
[2022-10-10] MEDS: HEPARIN SOD (PORCINE) 5000UNITS/ML 1ML VIAL/SYRINGE SQ SCH ×2 (04:52→12:09)
[2022-10-10 05:00] VITALS: BP 117/79
[2022-10-10] MEDS: LEVOTHYROXINE 88MCG TABLET (0.088 MG) PO SCH (05:00)
[2022-10-10] MEDS: PERCOCET 5MG/325MG TAB PO SCH ×2 (05:02→13:48)
[2022-10-10 06:38] LABS: MEAN CORPUSCULAR HEMOGLOBIN 32.7 pg (27.0-33.0); MEAN CORPUSCULAR HGB CONC 31.3 g/dl (32.0-36.5); MEAN CORPUSCULAR VOLUME 104.6 fl (80.0-96.0); PLATELET COUNT, AUTOMATED 406 10^3/uL (150-450); RED BLOOD COUNT 3.06 10^6/uL (4.00-5.40); WHITE BLOOD COUNT 8.8 10^3/uL (4.0-10.0)
[2022-10-10 07:15] LABS: CALCIUM LEVEL 8.4 MG/DL (8.3-10.6); CREATININE FOR GFR 1.54 MG/DL (0.55-1.30); GLOMERULAR FILTRATION RATE 34.2 (>32); POTASSIUM SERUM 4.6 MMOL/L (3.5-5.1)
[2022-10-10] MEDS: SYMBICORT 160/4.5MCG INHALER 6GM INH SCH (07:21)
[2022-10-10] MEDS: SENOKOT S TAB PO SCH (07:39)
[2022-10-10] MEDS: MIRALAX *UNIT DOSE* 17GM PACKET PO SCH (07:39)
[2022-10-10] MEDS: NYSTATIN 100,000 UNITS/GM TOPICAL PWD 15GM TOP SCH (09:04)
[2022-10-10] MEDS: LIDOCAINE 5% (LIDODERM) PATCH TD SCH ×3 (09:04)
[2022-10-10] MEDS: FUROSEMIDE 80 MG TAB PO SCH (09:05)
[2022-10-10] MEDS: LEVEMIR (INSULIN DETEMIR) 1 UNITS/0.01ML SC SCH (09:05)
[2022-10-10] MEDS: MONTELUKAST 10 MG TAB PO SCH (09:06)
[2022-10-10] MEDS: oxyBUTYnin *DITROPAN XL* 5 MG TABCR PO SCH (09:06)
[2022-10-10] MEDS: CETIRIZINE (ZyrTEC) 10 MG TAB PO SCH (09:06)
[2022-10-10] MEDS: OMEPRAZOLE 20MG CAP PO SCH (09:06)
[2022-10-10] MEDS: GABAPENTIN 300 MG CAP PO SCH (09:06)
[2022-10-10] MEDS: ASPIRIN 81MG ENTERIC TABLET PO SCH (09:06)
[2022-10-10] MEDS: INSULIN LISPRO (NovoLOG) PER UNIT SC SCH ×2 (09:06→12:09)
[2022-10-10] MEDS: CEPHALEXIN 500 MG CAP PO SCH ×2 (09:06→12:08)
[2022-10-10 12:00] VITALS: BP 92/69
[2022-10-10 14:00] VITALS: BP 118/50
== END 2022-10-10 15:06 | DRG 683 ==
LOC: EDBD 11:16 → M ED 11:16 → M ED INP 14:47 → M PCU 09-26 04:31 → M MSPAV 10-04 21:59
PROVIDERS: ADMIT Internal Medicine; ATTEND General Practice
DX: N17.9 Acute kidney failure, unspecified (principal); N30.00 Acute cystitis without hematuria; M62.82 Rhabdomyolysis; E87.20 Acidosis, unspecified; I24.8 Other forms of acute ischemic heart disease; G83.4 Cauda equina syndrome; E11.9 Type 2 diabetes mellitus without complications; I25.2 Old myocardial infarction; I10 Essential (primary) hypertension; E78.5 Hyperlipidemia, unspecified; K21.9 Gastro-esophageal reflux disease without esophagitis; E03.9 Hypothyroidism, unspecified; J44.9 Chronic obstructive pulmonary disease, unspecified; D63.8 Anemia in other chronic diseases classified elsewhere; I49.1 Atrial premature depolarization; R74.01 Elevation of levels of liver transaminase levels; M48.07 Spinal stenosis, lumbosacral region; R32 Unspecified urinary incontinence; E86.0 Dehydration; S70.01XA Contusion of right hip, initial encounter; S40.011A Contusion of right shoulder, initial encounter; B96.20 Unspecified Escherichia coli [E. coli] as the cause of diseases classified elsewhere; R19.7 Diarrhea, unspecified; N20.0 Calculus of kidney; M54.50 Low back pain, unspecified; K59.00 Constipation, unspecified; E87.5 Hyperkalemia; M21.372 Foot drop, left foot; Z79.82 Long term (current) use of aspirin; Z79.899 Other long term (current) drug therapy; Z96.651 Presence of right artificial knee joint; J10.1 Influenza due to other identified influenza virus with other respiratory manifestations; W18.30XA Fall on same level, unspecified, initial encounter; Y92.009 Unspecified place in unspecified non-institutional (private) residence as the place of occurrence of the external cause

== ENCOUNTER → 2022-11-10 | Outpatient (REF) | payer MEDICARE ==
[~2022-11-10] MED LIST changes: +ALBU8.5H INH; +ASPI-161 PO; +CEPH500C PO; +CETI10TA4 PO; +CHOL50003 PO; +COQ1100C5 PO; +DOCU100C17 PO; +FLON1SPR NARES; +FURO20TA2 PO; +GABA800T4 PO; +HYDR50TAB PO; +HYLAND LEG CRAMPS PO; +IBUP1TAB6 PO; +LEVO88TA24 PO; +LIDO1PAD TOP; +LIDO5TD TD; +LOSA100T45 PO; +METO1TAB32 PO; +METO1TAB87 PO; +MONT10TA97 PO; +NYST10006 TOP; +OMEP-173 PO; -OMEPRAZOLE 20MG CAP PO SCH; -OSELTAMIVIR PHOSPHATE 30MG CAPSULE PO SCH; +OXYB-54 PO; +OXYC1TAB23 PO; +PERCOCET PO; +POTA-136 PO; +PRED5TA PO; +QC F0.52 PO; +RA N1TAB PO; +SEMA1PEN2 PO; +SEMA2PEN SQ; +SYMB16INH INH; +VITMTA PO
[2022-11-10 15:01] LABS: HEMATOCRIT 37.5 % (36.0-47.0); HEMOGLOBIN 11.6 g/dl (12.0-15.5); MEAN CORPUSCULAR HEMOGLOBIN 31.2 pg (27.0-33.0); MEAN CORPUSCULAR HGB CONC 30.9 g/dl (32.0-36.5); MEAN CORPUSCULAR VOLUME 100.8 fl (80.0-96.0); PLATELET COUNT, AUTOMATED 506 10^3/uL (150-450); RED BLOOD COUNT 3.72 10^6/uL (4.00-5.40); WHITE BLOOD COUNT 14.3 10^3/uL (4.0-10.0)
[2022-11-10 15:32] LABS: ALBUMIN 2.6 G/DL (3.2-5.2); CALCIUM LEVEL 9.2 MG/DL (8.3-10.6); CHOLESTEROL RISK RATIO 4.74 (<5); CREATININE FOR GFR 1.54 MG/DL (0.55-1.30); GLOMERULAR FILTRATION RATE 34.2 (>32); HDL CHOLESTEROL 33.9 MG/DL (>40); LDL CHOLESTEROL 83.9 MG/DL (<100); PHOSPHORUS LEVEL 4.2 MG/DL (2.4-5.1); POTASSIUM SERUM 4.8 MMOL/L (3.5-5.1)
[2022-11-10 15:35] LABS: FREE T4 1.39 NG/DL (0.89-1.76); THYROID STIMULATING HORMONE 3.096 uIU/ML (0.55-4.78)
[2022-11-10 15:38] LABS: HEMOGLOBIN A1c 7.5 % (4.0-6.0)
== END ==
LOC: M SHH 14:41
PROVIDERS: ATTEND Physician Assistant
DX: E11.9 Type 2 diabetes mellitus without complications (principal); E78.5 Hyperlipidemia, unspecified; E03.9 Hypothyroidism, unspecified; I12.9 Hypertensive chronic kidney disease with stage 1 through stage 4 chronic kidney disease, or unspecified chronic kidney disease

== ENCOUNTER 2022-11-14 12:52 | Inpatient (IN) | payer MEDICARE ==
[~2022-11-14] VITALS: Ht 147.3 cm; Wt 77.7 kg
[~2022-11-14 12:52] MED LIST changes: -FURO20TA2 PO; -LIDO1PAD TOP; -METO1TAB32 PO; -OXYC1TAB23 PO; -SEMA2PEN SQ
[2022-11-14] MEDS ORDERED: NS 1,000 ML IV ONE (13:25)
[2022-11-14 14:18] LABS: BASO # 0.1 10^3/uL (0.0-0.2); BASO % 0.4 % (0.0-1.0); EOS % 0.2 % (0.0-3.0); HEMATOCRIT 34.8 % (36.0-47.0); HEMOGLOBIN 10.9 g/dl (12.0-15.5); LYMPH # 1.3 10^3/uL (1.5-5.0); LYMPH % 9.4 % (24.0-44.0); MEAN CORPUSCULAR HGB CONC 31.3 g/dl (32.0-36.5); MEAN CORPUSCULAR VOLUME 98.9 fl (80.0-96.0); MONO # 0.9 10^3/uL (0.0-0.8); MONO % 7.1 % (2.0-8.0); NEUTROPHILS # 10.9 10^3/uL (1.5-8.5); NEUTROPHILS % 82.3 % (36.0-66.0); PLATELET COUNT, AUTOMATED 488 10^3/uL (150-450); RED BLOOD COUNT 3.52 10^6/uL (4.00-5.40); WHITE BLOOD COUNT 13.3 10^3/uL (4.0-10.0)
[2022-11-14 14:46] LABS: LIPASE 46 U/L (12-53)
[2022-11-14 14:47] LABS: CPK CREATINE PHOSPHOKINASE 33 U/L (34-145)
[2022-11-14 14:48] LABS: ALBUMIN 2.3 G/DL (3.2-5.2); ALKALINE PHOSPHATASE 76 U/L (46-116); ALT/SGPT 50 U/L (7.0-40); AST/SGOT 20 U/L (<34); BILIRUBIN,DIRECT 0.1 MG/DL (<0.4); BILIRUBIN,TOTAL 0.4 MG/DL (0.3-1.2); BLOOD UREA NITROGEN 39 MG/DL (9-23); CALCIUM LEVEL 8.7 MG/DL (8.3-10.6); CARBON DIOXIDE LEVEL 25 MMOL/L (20-31); CHLORIDE LEVEL 101 MMOL/L (98-107); CK-MB VALUE MASS < 1.0 NG/ML (<3.6); GLOMERULAR FILTRATION RATE 38.2 (>32); GLUCOSE, FASTING 200 MG/DL (74-106); MB/CK RELATIVE INDEX 3.03 (< OR =4); POTASSIUM SERUM 4.1 MMOL/L (3.5-5.1); SODIUM LEVEL 137 MMOL/L (136-145); TOTAL PROTEIN 6.1 G/DL (5.7-8.2)
[2022-11-14 14:56] LABS: RSV AMPLIFICATION NEGATIVE (NEGATIVE)
[2022-11-14 14:59] LABS: INR 1.15; PROTHROMBIN TIME 14.9 SECONDS (12.5-14.5)
[2022-11-14 15:00] LABS: PARTIAL THROMBOPLASTIN TIME 28.9 SECONDS (24.8-34.2)
[2022-11-14] MEDS ORDERED: cefTRIAXone SOD 2 GM in D5W MINI-BAG PLUS 50 ML IV ONE (15:30)
[2022-11-14 15:38] LABS: CK-MB VALUE MASS < 1.0 NG/ML (<3.6)
[2022-11-14 15:39] LABS: CPK CREATINE PHOSPHOKINASE 31 U/L (34-145); MB/CK RELATIVE INDEX 3.22 (< OR =4)
[2022-11-14] MEDS ORDERED: ACETAMINOPHEN TAB 650MG DOSE (2X325MG) PO ONE (16:00)
[2022-11-14] MEDS ORDERED: ALBUTEROL SULFATE 2.5MG/0.5ML INH NEB SOLN NEB PRN (17:40)
[2022-11-14] MEDS ORDERED: GLUCAGON INJ 1MG VIAL SC PRN (17:40)
[2022-11-14] MEDS ORDERED: DEXTROSE 50% 50ML SYRINGE IV PRN (17:40)
[2022-11-14] MEDS ORDERED: GLUCOSE 4GM CHEW TABLET PO PRN (17:40)
[2022-11-14] MEDS ORDERED: SEMA2PEN SQ (18:01)
[2022-11-14] MEDS ORDERED: FURO20TA2 PO (18:11)
[2022-11-14] MEDS ORDERED: HYDR50TAB PO (18:11)
[2022-11-14] MEDS ORDERED: TRAM50TA2 PO (18:11)
[2022-11-14] MEDS ORDERED: METO1TAB32 PO (18:11)
[2022-11-14] MEDS ORDERED: LIDO1PAD TOP (18:11)
[2022-11-14] MEDS ORDERED: OXYC1TAB23 PO (18:11)
[2022-11-14] MEDS ORDERED: HOME MED LIST COMPLETE! XX SCH (18:15)
[2022-11-14] MEDS: NS 1,000 ML IV SCH (19:25)
[2022-11-14] MEDS: HEPARIN SOD (PORCINE) 5000UNITS/ML 1ML VIAL/SYRINGE SQ SCH (21:00)
[2022-11-14] MEDS: INSULIN LISPRO (NovoLOG) PER UNIT SC SCH (21:00)
[2022-11-14] MEDS: ACETAMINOPHEN TAB 650MG DOSE (2X325MG) PO PRN (21:52)
[2022-11-14] MEDS ORDERED: IBUPROFEN 400MG TAB PO ONE (23:05)
[2022-11-15] VITALS (7 sets, daily range): BP systolic 122–150; BP diastolic 56–88
[2022-11-15] MEDS: NS 1,000 ML IV SCH ×2 (01:05→09:24)
[2022-11-15] MEDS: HEPARIN SOD (PORCINE) 5000UNITS/ML 1ML VIAL/SYRINGE SQ SCH ×3 (03:58→20:24)
[2022-11-15 04:16] LABS: BASO # 0.1 10^3/uL (0.0-0.2); BASO % 0.6 % (0.0-1.0); EOS # 0.1 10^3/uL (0.0-0.5); EOS % 0.5 % (0.0-3.0); HEMATOCRIT 32.1 % (36.0-47.0); HEMOGLOBIN 9.8 g/dl (12.0-15.5); LYMPH # 1.3 10^3/uL (1.5-5.0); MEAN CORPUSCULAR HEMOGLOBIN 30.5 pg (27.0-33.0); MEAN CORPUSCULAR HGB CONC 30.5 g/dl (32.0-36.5); MONO # 0.9 10^3/uL (0.0-0.8); MONO % 8.1 % (2.0-8.0); NEUTROPHILS # 8.5 10^3/uL (1.5-8.5); NEUTROPHILS % 78.3 % (36.0-66.0); PLATELET COUNT, AUTOMATED 407 10^3/uL (150-450); RED BLOOD COUNT 3.21 10^6/uL (4.00-5.40); WHITE BLOOD COUNT 10.8 10^3/uL (4.0-10.0)
[2022-11-15 04:40] LABS: MAGNESIUM LEVEL 1.8 MG/DL (1.8-2.4)
[2022-11-15 04:42] LABS: CALCIUM LEVEL 7.8 MG/DL (8.3-10.6); CREATININE FOR GFR 1.31 MG/DL (0.55-1.30); GLOMERULAR FILTRATION RATE 41.3 (>32); PHOSPHORUS LEVEL 3.9 MG/DL (2.4-5.1); POTASSIUM SERUM 3.9 MMOL/L (3.5-5.1)
[2022-11-15] MEDS ORDERED: FLUTICASONE PROP 0.05% NASAL SPRAY 16 GM (FLONASE) NARES PRN (07:05)
[2022-11-15] MEDS ORDERED: DOCUSATE SODIUM 100MG CAPSULE PO PRN (07:05)
[2022-11-15] MEDS: SYMBICORT 160/4.5MCG INHALER 6GM INH SCH (08:00)
[2022-11-15] MEDS: INSULIN LISPRO (NovoLOG) PER UNIT SC SCH ×4 (09:20→20:25)
[2022-11-15] MEDS: MONTELUKAST 10 MG TAB PO SCH (09:23)
[2022-11-15] MEDS: CETIRIZINE (ZyrTEC) 10 MG TAB PO SCH (09:23)
[2022-11-15] MEDS: ASPIRIN 81MG ENTERIC TABLET PO SCH (09:23)
[2022-11-15] MEDS: predniSONE 5 MG TAB PO SCH ×2 (09:23→20:23)
[2022-11-15] MEDS: OMEPRAZOLE 20MG CAP PO SCH ×2 (09:23→20:24)
[2022-11-15] MEDS: METOPROLOL SUCC *XL* 25MG TAB (TopROL *XL*) PO SCH (09:23)
[2022-11-15] MEDS: MULTIVITAMINS/MINERALS THERAP 1 TAB PO SCH (09:23)
[2022-11-15] MEDS: LIDOCAINE 5% (LIDODERM) PATCH TOP SCH (09:24)
[2022-11-15] MEDS: ACETAMINOPHEN TAB 650MG DOSE (2X325MG) PO PRN (10:30)
[2022-11-15 13:48] LABS: FREE T4 1.22 NG/DL (0.89-1.76); THYROID STIMULATING HORMONE 0.869 uIU/ML (0.55-4.78)
[2022-11-15] MEDS: cefTRIAXone SOD 1 GM in D5W MINI-BAG PLUS 50 ML IV SCH (14:47)
[2022-11-15] MEDS: PERCOCET 5MG/325MG TAB PO PRN (16:15)
[2022-11-16] MEDS: PERCOCET 5MG/325MG TAB PO PRN ×2 (00:25→21:06)
[2022-11-16 03:50] VITALS: BP 142/62
[2022-11-16 04:15] LABS: HEMATOCRIT 31.4 % (36.0-47.0); HEMOGLOBIN 9.9 g/dl (12.0-15.5); MEAN CORPUSCULAR HEMOGLOBIN 30.7 pg (27.0-33.0); MEAN CORPUSCULAR HGB CONC 31.5 g/dl (32.0-36.5); MEAN CORPUSCULAR VOLUME 97.2 fl (80.0-96.0); PLATELET COUNT, AUTOMATED 467 10^3/uL (150-450); RED BLOOD COUNT 3.23 10^6/uL (4.00-5.40); WHITE BLOOD COUNT 8.2 10^3/uL (4.0-10.0)
[2022-11-16 04:36] LABS: MAGNESIUM LEVEL 1.9 MG/DL (1.8-2.4)
[2022-11-16 04:38] LABS: CALCIUM LEVEL 7.8 MG/DL (8.3-10.6); GLOMERULAR FILTRATION RATE 56.4 (>32); PHOSPHORUS LEVEL 3.3 MG/DL (2.4-5.1); POTASSIUM SERUM 4.2 MMOL/L (3.5-5.1)
[2022-11-16] MEDS: HEPARIN SOD (PORCINE) 5000UNITS/ML 1ML VIAL/SYRINGE SQ SCH ×3 (06:35→20:36)
[2022-11-16] MEDS: SYMBICORT 160/4.5MCG INHALER 6GM INH SCH ×2 (07:13→19:46)
[2022-11-16 07:33] VITALS: BP 144/64
[2022-11-16] MEDS: MONTELUKAST 10 MG TAB PO SCH (08:16)
[2022-11-16] MEDS: predniSONE 5 MG TAB PO SCH ×2 (08:16→20:32)
[2022-11-16] MEDS: OMEPRAZOLE 20MG CAP PO SCH ×2 (08:16→20:32)
[2022-11-16] MEDS: MULTIVITAMINS/MINERALS THERAP 1 TAB PO SCH (08:16)
[2022-11-16] MEDS: ASPIRIN 81MG ENTERIC TABLET PO SCH (08:16)
[2022-11-16] MEDS: CETIRIZINE (ZyrTEC) 10 MG TAB PO SCH (08:17)
[2022-11-16] MEDS: METOPROLOL SUCC *XL* 25MG TAB (TopROL *XL*) PO SCH (08:17)
[2022-11-16] MEDS: INSULIN LISPRO (NovoLOG) PER UNIT SC SCH ×4 (08:17→20:33)
[2022-11-16] MEDS: LIDOCAINE 5% (LIDODERM) PATCH TOP SCH (08:17)
[2022-11-16 11:52] VITALS: BP 161/93
[2022-11-16] MEDS: cefTRIAXone SOD 1 GM in D5W MINI-BAG PLUS 50 ML IV SCH (15:39)
[2022-11-16 20:00] VITALS: BP 126/60
[2022-11-17 00:06] VITALS: BP 156/84
[2022-11-17 05:49] LABS: HEMATOCRIT 31.9 % (36.0-47.0); MEAN CORPUSCULAR HEMOGLOBIN 30.6 pg (27.0-33.0); MEAN CORPUSCULAR HGB CONC 31.3 g/dl (32.0-36.5); MEAN CORPUSCULAR VOLUME 97.6 fl (80.0-96.0); PLATELET COUNT, AUTOMATED 494 10^3/uL (150-450); RED BLOOD COUNT 3.27 10^6/uL (4.00-5.40); WHITE BLOOD COUNT 7.1 10^3/uL (4.0-10.0)
[2022-11-17] MEDS: HEPARIN SOD (PORCINE) 5000UNITS/ML 1ML VIAL/SYRINGE SQ SCH ×2 (05:49→12:40)
[2022-11-17] MEDS: CEPHALEXIN 500 MG CAP PO SCH ×2 (05:49→12:38)
[2022-11-17 06:10] LABS: MAGNESIUM LEVEL 1.8 MG/DL (1.8-2.4)
[2022-11-17 06:27] LABS: BLOOD UREA NITROGEN 24 MG/DL (9-23); CALCIUM LEVEL 8.4 MG/DL (8.3-10.6); CARBON DIOXIDE LEVEL 22 MMOL/L (20-31); CHLORIDE LEVEL 110 MMOL/L (98-107); CREATININE FOR GFR 0.93 MG/DL (0.55-1.30); GLOMERULAR FILTRATION RATE > 60.0 (>32); GLUCOSE, FASTING 155 MG/DL (74-106); PHOSPHORUS LEVEL 2.5 MG/DL (2.4-5.1); POTASSIUM SERUM 4.3 MMOL/L (3.5-5.1); SODIUM LEVEL 143 MMOL/L (136-145)
[2022-11-17 06:29] VITALS: BP 161/83
[2022-11-17] MEDS: METOPROLOL SUCC *XL* 25MG TAB (TopROL *XL*) PO SCH (06:29)
[2022-11-17] MEDS: SYMBICORT 160/4.5MCG INHALER 6GM INH SCH (08:04)
[2022-11-17] MEDS: INSULIN LISPRO (NovoLOG) PER UNIT SC SCH ×2 (08:09→12:00)
[2022-11-17] MEDS: PERCOCET 5MG/325MG TAB PO PRN (08:10)
[2022-11-17] MEDS: MULTIVITAMINS/MINERALS THERAP 1 TAB PO SCH (08:10)
[2022-11-17] MEDS: ASPIRIN 81MG ENTERIC TABLET PO SCH (08:11)
[2022-11-17] MEDS: OMEPRAZOLE 20MG CAP PO SCH (08:12)
[2022-11-17] MEDS: CETIRIZINE (ZyrTEC) 10 MG TAB PO SCH (08:12)
[2022-11-17] MEDS: predniSONE 5 MG TAB PO SCH (08:12)
[2022-11-17] MEDS: MONTELUKAST 10 MG TAB PO SCH (08:13)
[2022-11-17] MEDS: LIDOCAINE 5% (LIDODERM) PATCH TOP SCH (08:14)
[2022-11-17] MEDS ORDERED: CEPH500C PO (11:20)
== END 2022-11-17 14:05 | disposition home or self-care (01) | DRG 690 ==
LOC: M ED 12:52 → M ED INP 16:53 → M PCU 11-15 00:40 → M MS5PR 11-16 23:54
PROVIDERS: ADMIT Internal Medicine; ATTEND Internal Medicine
DX: N39.0 Urinary tract infection, site not specified (principal); L97.819 Non-pressure chronic ulcer of other part of right lower leg with unspecified severity; L97.829 Non-pressure chronic ulcer of other part of left lower leg with unspecified severity; G83.4 Cauda equina syndrome; E11.622 Type 2 diabetes mellitus with other skin ulcer; B96.20 Unspecified Escherichia coli [E. coli] as the cause of diseases classified elsewhere; M21.372 Foot drop, left foot; R26.89 Other abnormalities of gait and mobility; R32 Unspecified urinary incontinence; E11.22 Type 2 diabetes mellitus with diabetic chronic kidney disease; I12.9 Hypertensive chronic kidney disease with stage 1 through stage 4 chronic kidney disease, or unspecified chronic kidney disease; E78.5 Hyperlipidemia, unspecified; G89.29 Other chronic pain; N18.9 Chronic kidney disease, unspecified; E03.9 Hypothyroidism, unspecified; K21.9 Gastro-esophageal reflux disease without esophagitis; J44.9 Chronic obstructive pulmonary disease, unspecified; D64.9 Anemia, unspecified; M48.07 Spinal stenosis, lumbosacral region; Z96.651 Presence of right artificial knee joint; Z90.79 Acquired absence of other genital organ(s); Z90.49 Acquired absence of other specified parts of digestive tract; Z20.822 Contact with and (suspected) exposure to COVID-19; Z79.82 Long term (current) use of aspirin; Z79.899 Other long term (current) drug therapy; Z79.890 Hormone replacement therapy; Z79.891 Long term (current) use of opiate analgesic

== ENCOUNTER → 2022-12-06 | Outpatient (REF) | payer MEDICARE ==
[~2022-12-06] MED LIST changes: +FURO20TA2 PO; +LIDO1PAD TOP; +METO1TAB32 PO; +OXYC1TAB23 PO; +SEMA2PEN SQ
[2022-12-06 17:43] LABS: APPEARANCE, URINE CLOUDY (CLEAR); BILIRUBIN, URINE AUTO NEGATIVE (NEGATIVE); BLOOD, URINE BLOOD 1+ (NEGATIVE); COLOR, URINE YELLOW (YELLOW); GLUCOSE, URINE (UA) AUTO NEGATIVE (NEGATIVE); KETONE, URINE AUTO NEGATIVE (NEGATIVE); LEUKOCYTE ESTERASE, URINE AUTO 3+ (NEGATIVE); NITRITE, URINE AUTO NEGATIVE (NEGATIVE); PROTEIN, URINE AUTO 1+ mg/dL (NEGATIVE); UROBILINOGEN, URINE AUTO 0.2 mg/dL (0.0-2.0)
[2022-12-06 17:50] LABS: BACTERIA, URINE AUTO 2+ (NEGATIVE); RBC, URINE AUTO 11 /HPF (0-3); SQUAMOUS EPITHELIAL CELL UR AU 0 /HPF (0-6); WBC, URINE AUTO TNTC /HPF (0-3)
== END ==
LOC: M SMT 16:54
PROVIDERS: ATTEND Physician Assistant
DX: N39.3 Stress incontinence (female) (male) (principal)

== ENCOUNTER → 2023-03-01 | Outpatient (REF) | payer MEDICARE ==
[~2023-03-01] MED LIST changes: -LOSA100T45 PO; +LOSA100T46 PO; -MELA10TA PO; +MELATONIN CR10 MG PO
[2023-03-01 16:02] LABS: APPEARANCE, URINE HAZY (CLEAR); BACTERIA, URINE AUTO NEGATIVE (NEGATIVE); BILIRUBIN, URINE AUTO NEGATIVE (NEGATIVE); BLOOD, URINE BLOOD NEGATIVE (NEGATIVE); COLOR, URINE YELLOW (YELLOW); GLUCOSE, URINE (UA) AUTO 1+ mg/dL (NEGATIVE); KETONE, URINE AUTO NEGATIVE (NEGATIVE); LEUKOCYTE ESTERASE, URINE AUTO 3+ (NEGATIVE); MUCUS, URINE SMALL (NEGATIVE); NITRITE, URINE AUTO NEGATIVE (NEGATIVE); PROTEIN, URINE AUTO NEGATIVE (NEGATIVE); RBC, URINE AUTO 4 /HPF (0-3); SPECIFIC GRAVITY URINE AUTO 1.012 (1.002-1.035); SQUAMOUS EPITHELIAL CELL UR AU 0 /HPF (0-6); UROBILINOGEN, URINE AUTO 0.2 mg/dL (0.0-2.0); WBC, URINE AUTO 67 /HPF (0-3)
== END ==
LOC: M SMT 15:03
PROVIDERS: ATTEND Physician Assistant
DX: N39.3 Stress incontinence (female) (male) (principal)

== ENCOUNTER → 2023-04-13 | Outpatient (CLI) | payer MEDICARE | LOC: M PLARAD 10:47 | PROVIDERS: ATTEND Nurse Practitioner Family | DX: M25.552 Pain in left hip (principal) ==

== ENCOUNTER → 2023-07-09 | Outpatient (CLI) | payer MEDICARE ==
[~2023-07-09] MED LIST changes: -AMIT25TA17 PO; +AMIT25TA19 PO
== END ==
LOC: M PLAIMG 09:42
PROVIDERS: ATTEND Pain Medicine Interventional Pain Medicine
DX: M19.011 Primary osteoarthritis, right shoulder (principal); M25.511 Pain in right shoulder

== ENCOUNTER → 2023-07-19 | Outpatient (REF) | payer MEDICARE ==
[2023-07-19 14:22] LABS: APPEARANCE, URINE CLOUDY (CLEAR); BACTERIA, URINE AUTO 3+ (NEGATIVE); BILIRUBIN, URINE AUTO NEGATIVE (NEGATIVE); BLOOD, URINE BLOOD 2+ (NEGATIVE); COLOR, URINE YELLOW (YELLOW); GLUCOSE, URINE (UA) AUTO NEGATIVE (NEGATIVE); KETONE, URINE AUTO NEGATIVE (NEGATIVE); LEUKOCYTE ESTERASE, URINE AUTO 3+ (NEGATIVE); MUCUS, URINE SMALL (NEGATIVE); NITRITE, URINE AUTO NEGATIVE (NEGATIVE); PROTEIN, URINE AUTO 1+ mg/dL (NEGATIVE); RBC, URINE AUTO 51 /HPF (0-3); SPECIFIC GRAVITY URINE AUTO 1.006 (1.002-1.035); SQUAMOUS EPITHELIAL CELL UR AU 9 /HPF (0-6); UROBILINOGEN, URINE AUTO 0.2 mg/dL (0.0-2.0); WBC, URINE AUTO TNTC /HPF (0-3)
== END ==
LOC: M SMT 12:53
PROVIDERS: ATTEND Urology
DX: R30.0 Dysuria (principal)

== ENCOUNTER 2023-09-14 09:26 | Emergency (ER) | payer MEDICARE ==
[~2023-09-14] VITALS: Ht 149.9 cm; Wt 79.5 kg
[2023-09-14] MEDS ORDERED: NAPR375T4 PO (10:09)
[2023-09-14] MEDS ORDERED: FAMO40TA3 PO (10:09)
[2023-09-14] MEDS ORDERED: GNP250TA9 PO (10:09)
[2023-09-14] MEDS ORDERED: PRAV40TA2 PO (10:09)
[2023-09-14] MEDS ORDERED: LOSA25TA13 PO (10:09)
[2023-09-14] MEDS ORDERED: POTA1TAB23 PO (10:09)
[2023-09-14] MEDS ORDERED: PRED25TA PO (10:09)
[2023-09-14] MEDS ORDERED: FARX1TAB3 PO (10:09)
[2023-09-14] MEDS ORDERED: LEVO88TA3 PO (10:09)
[2023-09-14] MEDS ORDERED: ESTR1TAB PO (10:09)
[2023-09-14] MEDS ORDERED: GABA800T4 PO (10:09)
[2023-09-14 11:25] LABS: BASO # 0.1 10^3/uL (0.0-0.2); BASO % 0.6 % (0.0-1.0); EOS # 0.3 10^3/uL (0.0-0.5); EOS % 2.9 % (0.0-3.0); HEMATOCRIT 37.3 % (36.0-47.0); LYMPH # 1.5 10^3/uL (1.5-5.0); LYMPH % 15.6 % (24.0-44.0); MEAN CORPUSCULAR HGB CONC 32.2 g/dl (32.0-36.5); MEAN CORPUSCULAR VOLUME 102.5 fl (80.0-96.0); MONO # 0.8 10^3/uL (0.0-0.8); MONO % 8.1 % (2.0-8.0); NEUTROPHILS # 6.7 10^3/uL (1.5-8.5); NEUTROPHILS % 72.2 % (36.0-66.0); PLATELET COUNT, AUTOMATED 380 10^3/uL (150-450); RED BLOOD COUNT 3.64 10^6/uL (4.00-5.40); WHITE BLOOD COUNT 9.3 10^3/uL (4.0-10.0)
[2023-09-14 11:58] LABS: CALCIUM LEVEL 9.1 MG/DL (8.3-10.6); CREATININE FOR GFR 1.21 MG/DL (0.55-1.30); GLOMERULAR FILTRATION RATE 45.1 (>32); POTASSIUM SERUM 4.1 MMOL/L (3.5-5.1)
[2023-09-14] MEDS ORDERED: ACETAMINOPHEN TAB 650MG DOSE (2X325MG) PO ONE (12:50)
[2023-09-14] MEDS ORDERED: LIDOCAINE 5% (LIDODERM) PATCH TD ONE (12:50)
[2023-09-14] MEDS ORDERED: traMADol 50 MG TAB PO ONE (12:50)
[2023-09-14] MEDS ORDERED: MORPHINE 2 MG/ML 1ML VIAL IV ONE (14:15)
[2023-09-14] MEDS ORDERED: TRAM50TA2 PO (14:17)
[2023-09-14 15:47] VITALS: BP 123/62; TEMP 97.6; O2SAT 96
== END 2023-09-14 15:49 | disposition home or self-care (01) ==
LOC: M ED 09:26
DX: S39.012A Strain of muscle, fascia and tendon of lower back, initial encounter (principal); M51.37 Other intervertebral disc degeneration, lumbosacral region; N18.9 Chronic kidney disease, unspecified; K58.9 Irritable bowel syndrome, unspecified; I10 Essential (primary) hypertension; E11.9 Type 2 diabetes mellitus without complications; Z88.8 Allergy status to other drugs, medicaments and biological substances; Z79.52 Long term (current) use of systemic steroids; Z79.811 Long term (current) use of aromatase inhibitors; Z79.810 Long term (current) use of selective estrogen receptor modulators (SERMs); Z79.899 Other long term (current) drug therapy

== ENCOUNTER 2023-09-16 19:48 | Inpatient (IN) | payer MEDICARE ==
[~2023-09-16] VITALS: Ht 149.9 cm; Wt 78.2 kg
[~2023-09-16 19:48] MED LIST changes: +FAMO40TA3 PO; +FARX1TAB3 PO; +GNP250TA9 PO; +LEVO88TA3 PO; +LOSA25TA13 PO; +NAPR375T4 PO; +POTA1TAB23 PO; +PRED25TA PO; +SEMAGLUTIDE 8 MG/3 ML SC SCH
[2023-09-16] MEDS: MORPHINE 2 MG/ML 1ML VIAL IV PRN (21:36)
[2023-09-16 21:50] LABS: HEMATOCRIT 38.3 % (36.0-47.0); HEMOGLOBIN 12.3 g/dl (12.0-15.5); MEAN CORPUSCULAR HEMOGLOBIN 33.4 pg (27.0-33.0); MEAN CORPUSCULAR HGB CONC 32.1 g/dl (32.0-36.5); MEAN CORPUSCULAR VOLUME 104.1 fl (80.0-96.0); PLATELET COUNT, AUTOMATED 482 10^3/uL (150-450); RED BLOOD COUNT 3.68 10^6/uL (4.00-5.40); WHITE BLOOD COUNT 9.6 10^3/uL (4.0-10.0)
[2023-09-16 22:16] LABS: CALCIUM LEVEL 9.2 MG/DL (8.3-10.6); CREATININE FOR GFR 1.11 MG/DL (0.55-1.30); GLOMERULAR FILTRATION RATE 49.9 (>32); POTASSIUM SERUM 4.4 MMOL/L (3.5-5.1)
[2023-09-16] MEDS ORDERED: ACETAMINOPHEN TAB 650MG DOSE (2X325MG) PO PRN (23:15)
[2023-09-16] MEDS: cefTRIAXone SOD 1 GM in D5W MINI-BAG PLUS 50 ML IV SCH (23:45)
[2023-09-17] MEDS: MORPHINE 2 MG/ML 1ML VIAL IV PRN (00:06)
[2023-09-17] MEDS ORDERED: FURO20TA2 PO (00:17)
[2023-09-17] MEDS ORDERED: TRAM50TA2 PO (00:17)
[2023-09-17] MEDS ORDERED: LIDO1PAD TOP (00:17)
[2023-09-17] MEDS ORDERED: HOME MED LIST COMPLETE! XX SCH (00:20)
[2023-09-17] MEDS ORDERED: FLUTICASONE PROP 0.05% NASAL SPRAY 16 GM (FLONASE) NARES PRN (00:35)
[2023-09-17] MEDS ORDERED: ALBUTEROL 90 MCG/ACT 8GM HFA INHALER INH PRN (00:35)
[2023-09-17 01:04] VITALS: BP 148/65; TEMP 97.9; O2SAT 95
[2023-09-17] MEDS: traMADol 50 MG TAB PO PRN ×2 (01:25→06:51)
[2023-09-17] MEDS ORDERED: GLUCAGON INJ 1MG VIAL SC PRN (03:45)
[2023-09-17] MEDS ORDERED: DEXTROSE 50% 50ML SYRINGE IV PRN (03:45)
[2023-09-17] MEDS ORDERED: GLUCOSE 4GM CHEW TABLET PO PRN (03:45)
[2023-09-17] MEDS: LEVOTHYROXINE 88MCG TABLET (0.088 MG) PO SCH (05:43)
[2023-09-17] MEDS: HEPARIN SOD (PORCINE) 5000UNITS/ML 1ML VIAL/SYRINGE SC SCH ×3 (05:43→22:58)
[2023-09-17 05:56] LABS: HEMATOCRIT 35.1 % (36.0-47.0); HEMOGLOBIN 11.4 g/dl (12.0-15.5); MEAN CORPUSCULAR HEMOGLOBIN 33.8 pg (27.0-33.0); MEAN CORPUSCULAR HGB CONC 32.5 g/dl (32.0-36.5); MEAN CORPUSCULAR VOLUME 104.2 fl (80.0-96.0); PLATELET COUNT, AUTOMATED 428 10^3/uL (150-450); RED BLOOD COUNT 3.37 10^6/uL (4.00-5.40); WHITE BLOOD COUNT 8.9 10^3/uL (4.0-10.0)
[2023-09-17 06:00] VITALS: BP 149/63; TEMP 97.9; O2SAT 92
[2023-09-17 06:19] LABS: ALBUMIN 2.4 G/DL (3.2-5.2); BILIRUBIN,TOTAL 0.3 MG/DL (0.3-1.2); CALCIUM LEVEL 8.6 MG/DL (8.3-10.6); CREATININE FOR GFR 1.06 MG/DL (0.55-1.30); GLOMERULAR FILTRATION RATE 52.6 (>32); POTASSIUM SERUM 4.2 MMOL/L (3.5-5.1); TOTAL PROTEIN 5.5 G/DL (5.7-8.2)
[2023-09-17] MEDS: INSULIN LISPRO (NovoLOG) PER UNIT SC SCH ×4 (07:30→20:51)
[2023-09-17] MEDS ORDERED: estradioL 1 MG TAB PO SCH (09:00)
[2023-09-17] MEDS: DAPAGLIFLOZIN PROPANEDIOL 10MG TABLET (FARXIGA) PO SCH (09:06)
[2023-09-17] MEDS: GABAPENTIN 400MG CAP PO SCH ×3 (09:06→22:59)
[2023-09-17] MEDS: FAMOTIDINE 20 MG TAB PO SCH ×2 (09:07→22:59)
[2023-09-17] MEDS: MONTELUKAST 10 MG TAB PO SCH (09:08)
[2023-09-17] MEDS: LOSARTAN 25 MG TAB PO SCH (09:08)
[2023-09-17] MEDS: MULTIVITAMINS/MINERALS THERAP 1 TAB PO SCH (09:08)
[2023-09-17] MEDS: METOPROLOL SUCC *XL* 25MG TAB (TopROL *XL*) PO SCH (09:09)
[2023-09-17] MEDS: CETIRIZINE (ZyrTEC) 10 MG TAB PO SCH (09:09)
[2023-09-17] MEDS: predniSONE 2.5 MG TAB PO SCH ×2 (09:10→22:58)
[2023-09-17] MEDS: LIDOCAINE 5% (LIDODERM) PATCH TOP SCH (09:12)
[2023-09-17] MEDS ORDERED: MORPHINE 2 MG/ML 1ML VIAL IV PRN (10:25)
[2023-09-17] MEDS: CYCLOBENZAPRINE 5MG TABLET PO PRN ×2 (10:58→17:23)
[2023-09-17] MEDS: SYMBICORT 160/4.5MCG INHALER 6GM INH SCH ×2 (11:12→20:20)
[2023-09-17 14:00] VITALS: BP 145/62; TEMP 98.2; O2SAT 91
[2023-09-17] MEDS: PERCOCET 5MG/325MG TAB PO PRN (17:24)
[2023-09-17 20:42] VITALS: BP 109/57; TEMP 98.2; O2SAT 92
[2023-09-17] MEDS: ASPIRIN 81MG ENTERIC TABLET PO SCH (22:58)
[2023-09-17] MEDS: PRAVASTATIN 20 MG TAB PO SCH (22:59)
[2023-09-17] MEDS: FUROSEMIDE 20 MG TAB PO SCH (22:59)
[2023-09-17] MEDS: cefTRIAXone SOD 1 GM in D5W MINI-BAG PLUS 50 ML IV SCH (23:34)
[2023-09-18] MEDS: PERCOCET 5MG/325MG TAB PO PRN ×4 (00:54→23:05)
[2023-09-18 05:54] LABS: HEMATOCRIT 33.4 % (36.0-47.0); HEMOGLOBIN 10.9 g/dl (12.0-15.5); MEAN CORPUSCULAR HGB CONC 32.6 g/dl (32.0-36.5); PLATELET COUNT, AUTOMATED 424 10^3/uL (150-450); RED BLOOD COUNT 3.21 10^6/uL (4.00-5.40); WHITE BLOOD COUNT 9.5 10^3/uL (4.0-10.0)
[2023-09-18 06:20] LABS: CALCIUM LEVEL 8.8 MG/DL (8.3-10.6); CREATININE FOR GFR 0.99 MG/DL (0.55-1.30); GLOMERULAR FILTRATION RATE 56.9 (>32); POTASSIUM SERUM 4.1 MMOL/L (3.5-5.1)
[2023-09-18 06:32] VITALS: BP 111/58; TEMP 97.9; O2SAT 96
[2023-09-18] MEDS: LEVOTHYROXINE 88MCG TABLET (0.088 MG) PO SCH (06:56)
[2023-09-18] MEDS: HEPARIN SOD (PORCINE) 5000UNITS/ML 1ML VIAL/SYRINGE SC SCH ×3 (06:57→23:04)
[2023-09-18] MEDS: SYMBICORT 160/4.5MCG INHALER 6GM INH SCH ×2 (08:32→20:34)
[2023-09-18] MEDS: INSULIN LISPRO (NovoLOG) PER UNIT SC SCH ×4 (09:01→21:00)
[2023-09-18] MEDS: GABAPENTIN 400MG CAP PO SCH ×3 (09:03→23:06)
[2023-09-18] MEDS: FAMOTIDINE 20 MG TAB PO SCH ×2 (09:03→23:06)
[2023-09-18] MEDS: MULTIVITAMINS/MINERALS THERAP 1 TAB PO SCH (09:03)
[2023-09-18] MEDS: DAPAGLIFLOZIN PROPANEDIOL 10MG TABLET (FARXIGA) PO SCH (09:03)
[2023-09-18] MEDS: MONTELUKAST 10 MG TAB PO SCH (09:03)
[2023-09-18] MEDS: LOSARTAN 25 MG TAB PO SCH (09:04)
[2023-09-18] MEDS: CETIRIZINE (ZyrTEC) 10 MG TAB PO SCH (09:04)
[2023-09-18] MEDS: predniSONE 2.5 MG TAB PO SCH ×2 (09:04→23:06)
[2023-09-18] MEDS: METOPROLOL SUCC *XL* 25MG TAB (TopROL *XL*) PO SCH (09:04)
[2023-09-18] MEDS: CYCLOBENZAPRINE 5MG TABLET PO PRN ×2 (09:07→23:21)
[2023-09-18] MEDS: LIDOCAINE 5% (LIDODERM) PATCH TOP SCH (09:12)
[2023-09-18] MEDS: CEPHALEXIN 500 MG CAP PO SCH ×3 (12:18→23:57)
[2023-09-18 14:35] VITALS: BP 122/65; TEMP 97.7; O2SAT 95
[2023-09-18 19:29] VITALS: BP 116/72; TEMP 98.1; O2SAT 96
[2023-09-18] MEDS: PRAVASTATIN 20 MG TAB PO SCH (23:04)
[2023-09-18] MEDS: ASPIRIN 81MG ENTERIC TABLET PO SCH (23:06)
[2023-09-18] MEDS: FUROSEMIDE 20 MG TAB PO SCH (23:07)
[2023-09-19] MEDS: HEPARIN SOD (PORCINE) 5000UNITS/ML 1ML VIAL/SYRINGE SC SCH ×3 (05:10→20:49)
[2023-09-19] MEDS: LEVOTHYROXINE 88MCG TABLET (0.088 MG) PO SCH (05:10)
[2023-09-19] MEDS: CEPHALEXIN 500 MG CAP PO SCH ×4 (05:10→23:15)
[2023-09-19] MEDS: PERCOCET 5MG/325MG TAB PO PRN ×3 (05:11→20:50)
[2023-09-19 06:30] VITALS: BP 134/61; TEMP 97.9; O2SAT 96
[2023-09-19 06:36] LABS: MEAN CORPUSCULAR HEMOGLOBIN 33.2 pg (27.0-33.0); MEAN CORPUSCULAR HGB CONC 32.4 g/dl (32.0-36.5); MEAN CORPUSCULAR VOLUME 102.7 fl (80.0-96.0); PLATELET COUNT, AUTOMATED 438 10^3/uL (150-450); RED BLOOD COUNT 3.31 10^6/uL (4.00-5.40); WHITE BLOOD COUNT 7.6 10^3/uL (4.0-10.0)
[2023-09-19 06:58] LABS: CALCIUM LEVEL 8.5 MG/DL (8.3-10.6); CREATININE FOR GFR 1.07 MG/DL (0.55-1.30); POTASSIUM SERUM 4.2 MMOL/L (3.5-5.1)
[2023-09-19] MEDS: MULTIVITAMINS/MINERALS THERAP 1 TAB PO SCH (08:10)
[2023-09-19] MEDS: MONTELUKAST 10 MG TAB PO SCH (08:10)
[2023-09-19] MEDS: FAMOTIDINE 20 MG TAB PO SCH ×2 (08:10→20:50)
[2023-09-19] MEDS: CETIRIZINE (ZyrTEC) 10 MG TAB PO SCH (08:11)
[2023-09-19] MEDS: INSULIN LISPRO (NovoLOG) PER UNIT SC SCH ×4 (08:11→20:34)
[2023-09-19] MEDS: GABAPENTIN 400MG CAP PO SCH ×3 (08:11→20:51)
[2023-09-19] MEDS: predniSONE 2.5 MG TAB PO SCH ×2 (08:11→20:51)
[2023-09-19] MEDS: LIDOCAINE 5% (LIDODERM) PATCH TOP SCH (08:11)
[2023-09-19] MEDS: METOPROLOL SUCC *XL* 25MG TAB (TopROL *XL*) PO SCH (08:14)
[2023-09-19] MEDS: LOSARTAN 25 MG TAB PO SCH (08:14)
[2023-09-19] MEDS: SYMBICORT 160/4.5MCG INHALER 6GM INH SCH ×2 (08:55→21:01)
[2023-09-19] MEDS: MIRALAX *UNIT DOSE* 17GM PACKET PO SCH ×2 (11:10→20:49)
[2023-09-19] MEDS: SENOKOT S TAB PO SCH ×2 (11:10→20:50)
[2023-09-19 14:00] VITALS: BP 116/59; TEMP 97.9; O2SAT 94
[2023-09-19 20:19] VITALS: BP 122/79; TEMP 98.4; O2SAT 94
[2023-09-19] MEDS: ASPIRIN 81MG ENTERIC TABLET PO SCH (20:49)
[2023-09-19] MEDS: PRAVASTATIN 20 MG TAB PO SCH (20:50)
[2023-09-19] MEDS: FUROSEMIDE 20 MG TAB PO SCH (20:50)
[2023-09-20 06:04] LABS: HEMATOCRIT 33.4 % (36.0-47.0); HEMOGLOBIN 10.7 g/dl (12.0-15.5); MEAN CORPUSCULAR HEMOGLOBIN 32.8 pg (27.0-33.0); MEAN CORPUSCULAR VOLUME 102.5 fl (80.0-96.0); PLATELET COUNT, AUTOMATED 486 10^3/uL (150-450); RED BLOOD COUNT 3.26 10^6/uL (4.00-5.40); WHITE BLOOD COUNT 7.9 10^3/uL (4.0-10.0)
[2023-09-20] MEDS: CEPHALEXIN 500 MG CAP PO SCH ×2 (06:20→12:32)
[2023-09-20] MEDS: LEVOTHYROXINE 88MCG TABLET (0.088 MG) PO SCH (06:20)
[2023-09-20] MEDS: HEPARIN SOD (PORCINE) 5000UNITS/ML 1ML VIAL/SYRINGE SC SCH (06:20)
[2023-09-20] MEDS: PERCOCET 5MG/325MG TAB PO PRN ×2 (06:24→12:47)
[2023-09-20 06:30] LABS: CALCIUM LEVEL 8.7 MG/DL (8.3-10.6); CREATININE FOR GFR 1.03 MG/DL (0.55-1.30); GLOMERULAR FILTRATION RATE 54.3 (>32); POTASSIUM SERUM 4.3 MMOL/L (3.5-5.1)
[2023-09-20 08:04] VITALS: BP 119/76
[2023-09-20] MEDS: MONTELUKAST 10 MG TAB PO SCH (08:04)
[2023-09-20] MEDS: predniSONE 2.5 MG TAB PO SCH (08:04)
[2023-09-20] MEDS: CETIRIZINE (ZyrTEC) 10 MG TAB PO SCH (08:04)
[2023-09-20] MEDS: METOPROLOL SUCC *XL* 25MG TAB (TopROL *XL*) PO SCH (08:04)
[2023-09-20] MEDS: MULTIVITAMINS/MINERALS THERAP 1 TAB PO SCH (08:04)
[2023-09-20] MEDS: SENOKOT S TAB PO SCH (08:04)
[2023-09-20] MEDS: LOSARTAN 25 MG TAB PO SCH (08:05)
[2023-09-20] MEDS: INSULIN LISPRO (NovoLOG) PER UNIT SC SCH ×2 (08:05→12:00)
[2023-09-20] MEDS: MIRALAX *UNIT DOSE* 17GM PACKET PO SCH (08:05)
[2023-09-20] MEDS: FAMOTIDINE 20 MG TAB PO SCH (08:05)
[2023-09-20] MEDS: GABAPENTIN 400MG CAP PO SCH (08:05)
[2023-09-20] MEDS: LIDOCAINE 5% (LIDODERM) PATCH TOP SCH (08:06)
[2023-09-20] MEDS: SYMBICORT 160/4.5MCG INHALER 6GM INH SCH (08:17)
[2023-09-20] MEDS ORDERED: CEPH500C PO (10:21)
[2023-09-20 11:26] VITALS: BP 120/78; TEMP 98.1
[2023-09-20] MEDS ORDERED: TRAM50TA2 PO (12:19)
== END 2023-09-20 13:15 | disposition home or self-care (01) | DRG 552 ==
LOC: EDBD 19:48 → M ED 19:48 → M ED INP 23:11 → M MS5PR 09-17 01:04
PROVIDERS: ADMIT Family Medicine; ATTEND Family Medicine
DX: M48.061 Spinal stenosis, lumbar region without neurogenic claudication (principal); N39.0 Urinary tract infection, site not specified; E11.9 Type 2 diabetes mellitus without complications; E66.9 Obesity, unspecified; E03.9 Hypothyroidism, unspecified; J45.909 Unspecified asthma, uncomplicated; I10 Essential (primary) hypertension; N31.9 Neuromuscular dysfunction of bladder, unspecified; B96.20 Unspecified Escherichia coli [E. coli] as the cause of diseases classified elsewhere; G89.29 Other chronic pain; Z79.899 Other long term (current) drug therapy

== ENCOUNTER → 2023-11-22 | Outpatient (REF) | payer MEDICARE ==
[~2023-11-22] MED LIST changes: -SEMAGLUTIDE 8 MG/3 ML SC SCH
== END ==
LOC: M LAB REF 15:28
PROVIDERS: ATTEND Nurse Practitioner Adult Health
DX: Z87.440 Personal history of urinary (tract) infections (principal); Z79.899 Other long term (current) drug therapy

== ENCOUNTER → 2024-01-22 | Outpatient (CLI) | payer MEDICARE ==
[~2024-01-22] MED LIST changes: -ASPI-161 PO; +ASPI-615 PO
== END ==
LOC: M WHC 10:51
PROVIDERS: ATTEND Orthopaedic Surgery
DX: Z13.820 Encounter for screening for osteoporosis (principal); Q78.2 Osteopetrosis; M19.011 Primary osteoarthritis, right shoulder

== ENCOUNTER → 2024-03-13 | Outpatient (REF) | payer MEDICARE, OTHER ==
[2024-03-13 17:40] LABS: APPEARANCE, URINE MANUAL HAZY (CLEAR); COLOR, URINE MANUAL COLORLESS (YELLOW)
[2024-03-13 17:41] LABS: BILIRUBIN, URINE MANUAL NEGATIVE (NEGATIVE); GLUCOSE, URINE (UA) MANUAL NEGATIVE (NEGATIVE); KETONE, URINE MANUAL NEGATIVE (NEGATIVE); LEUKOCYTE ESTERASE, URINE MAN POSITIVE (NEGATIVE); NITRITE, URINE MANUAL NEGATIVE (NEGATIVE); PH,URINE MAN 5.5 UNITS (5.0 - 7.0); PROTEIN, URINE MANUAL TRACE mg/dL (NEGATIVE); UROBILINOGEN, URINE MANUAL NORMAL (NORMAL)
[2024-03-13 17:42] LABS: BLOOD URINE MANUAL TRACE (NEGATIVE)
[2024-03-13 19:14] LABS: BACTERIA, URINE SMALL AMOUNT; SQUAMOUS EPITHELIAL CELL URINE SMALL AMOUNT /hpf (SMALL AMT); TRANSITIONAL EPI CELLS, URINE SMALL AMOUNT /hpf; WBC, URINE 20-30 /hpf (0-3)
[2024-03-13 19:15] LABS: HYALINE CAST, URINE NONE SEEN /lpf (0-1); MUCUS, URINE SMALL AMOUNT (NEGATIVE)
== END ==
LOC: M SMT 16:57
PROVIDERS: ATTEND Physician Assistant
DX: N39.3 Stress incontinence (female) (male) (principal)